=== PATIENT | female | born 1975 | race Caucasian/White ===

== ENCOUNTER 2017-12-29 03:17 | Emergency (ER) | payer MEDICAID ==
[~2017-12-29] VITALS: Ht 177.8 cm; Wt 124.0 kg
[~2017-12-29 03:17] MED LIST: CYCL-1 PO; CYCL-394 PO; LEVO175T38 PO; NAPR-56 PO; ONDA8TAB13 PO; SERT25TA PO; [UNRECOGNIZED DRUG - CODE] PO
[2017-12-29 03:26] VITALS: BP 122/74
[2017-12-29] MEDS ORDERED: IBUP-1984 PO (03:46)
[2017-12-29] MEDS ORDERED: HYDR-569 PO (03:46)
== END 2017-12-29 04:08 | disposition home or self-care (01) ==
LOC: ER 03:18
DX: K12.1 Other forms of stomatitis (principal); E03.9 Hypothyroidism, unspecified; I10 Essential (primary) hypertension; F15.10 Other stimulant abuse, uncomplicated; Z88.0 Allergy status to penicillin; Z88.5 Allergy status to narcotic agent; Z79.899 Other long term (current) drug therapy
CPT/HCPCS: 99283

== ENCOUNTER 2019-02-02 12:11 | Outpatient (CLI) | payer MEDICAID ==
[~2019-02-02 12:11] MED LIST changes: +HYDR-4383 PO
== END 2019-02-02 23:59 | disposition home or self-care (01) ==
LOC: RAD 12:11
PROVIDERS: ATTEND Family Medicine
DX: G40.909 Epilepsy, unspecified, not intractable, without status epilepticus (principal); Z87.828 Personal history of other (healed) physical injury and trauma
CPT/HCPCS: 95816

== ENCOUNTER 2019-02-27 11:05 | Emergency (ER) | payer MEDICAID ==
[~2019-02-27] VITALS: Ht 177.8 cm; Wt 109.0 kg
[2019-02-27 11:44] LABS: BASOPHILS % (AUTO) 0.4 % (0-1); EOSINOPHILS # (AUTO) 0.3 X10'3 (0-0.9); EOSINOPHILS % (AUTO) 3.8 % (0-6); HEMATOCRIT 39.9 % (35.0-45.0); HEMOGLOBIN 13.4 g/dl (12.0-16.0); LYMPHOCYTES # (AUTO) 1.7 X10'3 (1.1-4.8); LYMPHOCYTES % (AUTO) 22.4 % (21-51); MEAN CORPUSCULAR HEMOGLOBIN 32.7 PG (27.0-31.0); MEAN CORPUSCULAR HGB CONC 33.5 g/dL (33.0-36.5); MEAN CORPUSCULAR VOLUME 97.4 FL (78-98); MONOCYTES # (AUTO) 0.4 X10'3 (0-0.9); MONOCYTES % (AUTO) 5.9 % (2-12); NEUTROPHILS # (AUTO) 5.1 X10'3 (1.8-7.7); NEUTROPHILS % (AUTO) 67.5 % (42-75); PLATELET COUNT 231 X10'3 (140-440); RED CELL DISTRIBUTION WIDTH 14.4 % (11.5-14.5); WHITE BLOOD COUNT 7.6 X10'3 (4.5-11.0)
[2019-02-27 11:50] LABS: PARTIAL THROMBOPLASTIN TIME 35 SECONDS (22-32)
[2019-02-27 11:52] LABS: ALANINE AMINOTRANSFERASE 25 U/L (12-78); ALBUMIN 3.7 G/DL (3.4-5.0); ALBUMIN/GLOBULIN RATIO 0.8 (1.1-1.5); ALKALINE PHOSPHATASE 97 IU/L (46-116); ANION GAP 8 (8-16); ASPARTATE AMINO TRANSFERASE 17 U/L (10-37); BILIRUBIN,TOTAL 0.4 MG/DL (0.1-1.0); BLOOD UREA NITROGEN 15 MG/DL (7-18); CALCIUM 8.7 MG/DL (8.5-10.1); CHLORIDE 104 MMOL/L (99-107); CREATININE 1.25 MG/DL (0.40-0.90); GLUCOSE 88 MG/DL (70-104); POTASSIUM 3.5 MMOL/L (3.5-5.1); SODIUM 141 MMOL/L (135-145); TOTAL CARBON DIOXIDE 29.4 MMOL/L (24-32); TOTAL PROTEIN 8.1 G/DL (6.4-8.2); eGFR 47 ML/MIN
[2019-02-27 12:53] LABS: CLARITY,URINE CLEAR (Clear); COLOR,URINE YELLOW (Yellow); GLUCOSE, URINE NEGATIVE (Neg); KETONES,URINE NEGATIVE (Neg); LEUKOCYTE ESTERASE ,URINE NEGATIVE (Neg); NITRITES, URINE NEGATIVE (Neg); OCCULT BLOOD,URINE TRACE-INTACT (Neg); PROTEIN,URINE NEGATIVE (Neg); UROBILINOGEN,URINE 0.2 E.U/dL (0.2-1.0)
[2019-02-27 13:08] LABS: SQUAMOUS EPITHELIAL CELL,UR MANY /LPF (FEW); UA COLLECTION TYPE NON-SPECIFIED
[2019-02-27 13:09] LABS: BACTERIA,URINE FEW /HPF (Neg); MUCUS STRANDS MODERATE /LPF (Neg); RBC,URINE 0-2 /HPF (0-2); WBC,URINE 0-4 /HPF (0-4)
[2019-02-27 13:25] VITALS: BP 115/79
== END 2019-02-27 13:35 | disposition home or self-care (01) ==
LOC: ER 11:06
DX: R56.9 Unspecified convulsions (principal); I10 Essential (primary) hypertension; E03.9 Hypothyroidism, unspecified; F15.90 Other stimulant use, unspecified, uncomplicated; Z98.890 Other specified postprocedural states; Z88.0 Allergy status to penicillin; Z88.5 Allergy status to narcotic agent; Z79.899 Other long term (current) drug therapy
CPT/HCPCS: 36415; 71045; 80053; 81001; 84484; 85025; 85610; 85730; 93005; 99284

== ENCOUNTER 2020-05-18 11:34 | Day surgery (SDC) | payer MEDICAID ==
[2020-05-12 15:14] LABS: BASOPHILS % (AUTO) 0.3 % (0-1); EOSINOPHILS # (AUTO) 0.6 X10'3 (0-0.9); LYMPHOCYTES # (AUTO) 2.6 X10'3 (1.1-4.8); LYMPHOCYTES % (AUTO) 23.2 % (21-51); MEAN CORPUSCULAR HEMOGLOBIN 32.3 PG (27.0-31.0); MEAN CORPUSCULAR HGB CONC 33.3 g/dL (33.0-36.5); MEAN PLATELET VOLUME 8.3 FL (7.4-10.4); MONOCYTES # (AUTO) 0.7 X10'3 (0-0.9); MONOCYTES % (AUTO) 6.2 % (2-12); NEUTROPHILS # (AUTO) 7.2 X10'3 (1.8-7.7); NEUTROPHILS % (AUTO) 65.3 % (42-75); PRE OP HEMATOCRIT 39.4 % (35.0-45.0); PRE OP HEMOGLOBIN 13.1 g/dL (12.0-16.0); PRE OP PLATELET COUNT 232 X10'3 (140-440); RED BLOOD COUNT 4.06 X10'6 (4.20-5.60); RED CELL DISTRIBUTION WIDTH 14.2 % (11.5-14.5)
[2020-05-12 15:30] LABS: ALBUMIN 4.2 G/DL (3.4-5.0); ALBUMIN/GLOBULIN RATIO 0.9 (1.1-1.5); ALKALINE PHOSPHATASE 100 IU/L (46-116); BLOOD UREA NITROGEN 15 MG/DL (7-18); BUN/CREATININE RATIO 8.9 (6.6-38.0); CALCIUM 9.5 MG/DL (8.5-10.1); CHLORIDE 103 MMOL/L (99-107); CREATININE 1.68 MG/DL (0.40-0.90); PRE OP ALT 29 U/L (30-65); PRE OP ANION GAP 9 (8-16); PRE OP AST 24 U/L (10-37); PRE OP BILIRUB, TOTAL 0.3 MG/DL (0.0-1.0); PRE OP GLUCOSE 84 MG/DL (70-104); PRE OP POTASSIUM 4.1 MMOL/L (3.4-5.1); PRE OP SODIUM 140 MMOL/L (135-145); TOTAL CARBON DIOXIDE 28.5 MMOL/L (24-32); TOTAL PROTEIN 8.7 G/DL (6.4-8.2); eGFR 33 ML/MIN
[2020-05-12 15:43] LABS: HCG SERUM QL NEGATIVE
[~2020-05-18] VITALS: Ht 180.3 cm; Wt 144.0 kg
[2020-05-18] VITALS (14 sets, daily range): BP systolic 103–130; BP diastolic 66–84
[~2020-05-18 11:34] MED LIST changes: +ALBU8.5H8 IH; -CYCL-1 PO; +DIVA500T9 PO; +FURO40TA4 PO; +GABA800T11 PO; -NAPR-56 PO; -ONDA8TAB13 PO; +POTA10TA19 PO; -SERT25TA PO; +TOPI25TA49 PO; -[UNRECOGNIZED DRUG - CODE] PO; +acetaminophen 325mg tablet PO ONE; +albuterol 2.5 MG/3 ML nebule NEB ONE; +ascorbic acid 500mg tablet PO ONE; +ceFAZolin 2gm in dextrose, iso 50 ML IV ONE; +celeCOXIB 100mg capsule PO ONE; +famotidine 20mg tablet PO ONE; +gabapentin 300mg capsule PO ONE; +ringers solution, lacted 1,000 ML IV SCH; +vancomycin 1,500 MG in NS 300ml IV soln IV ONE
[2020-05-18] MEDS ORDERED: methylPREDNISolone sod succ 125mg/2ml vial ONE (12:36)
[2020-05-18] MEDS ORDERED: BUPIVAcaine/PF 2.5 mg/ml (0.25%) 30ml vial ONE (12:37)
[2020-05-18] MEDS ORDERED: levoFLOXACIN-Levaquin 500mg/D5 100 ML IV ONE (12:40)
[2020-05-18] MEDS ORDERED: ringers solution, lacted 1,000 ML IV SCH (12:41)
[2020-05-18] MEDS ORDERED: LIDOcaine 0.5% (5mg/ml) 50ml vial ONE (12:44)
[2020-05-18] MEDS ORDERED: morphine 4 MG/ML inj SYRINge IV PRN (12:45)
[2020-05-18] MEDS ORDERED: hydrALAZINE 20mg/ml inj. IV PRN (12:45)
[2020-05-18] MEDS ORDERED: ondansetron/PF 4mg/2ml inj IV PRN (12:45)
[2020-05-18] MEDS ORDERED: fentaNYL/PF 50MCG/1 ML 2ML syringe IV PRN ×2 (12:45)
[2020-05-18] MEDS ORDERED: labetalol 20mg/4ml (5mg/ml) syringe IV PRN (12:45)
[2020-05-18] MEDS ORDERED: morphine 2 MG/ML inj. syringe IV PRN (12:45)
[2020-05-18] MEDS ORDERED: fentaNYL/PF 50MCG/1 ML 2ML syringe ONE (12:47)
[2020-05-18] MEDS ORDERED: MIDAZolam 1mg/ml 10ml vial ONE (12:47)
--- NOTE | 2020-05-18 13:20 | NUR ---
Received from OR via [facility] , accompanied by Anesthesiologist DAMIR and report given by Anesthesiolgist. PATIENT WITH 20G PIV IN LEFT UE RUNNING LR AT 100. RIGHT WRIST DRESSING IS CDI. VSS. + CAP REFILL AND BLANCHABILITY. Addendum: 05/18/20 at 1427 by Rahul Ferguson RN, RN Amended: Links added.
--- NOTE | 2020-05-18 15:58 | NUR ---
I HAVE REVIEWED D/C INSTRUCTIONS WITH PATIENT AND FAMILY AND THEY HAVE VERBALIZED UNDERSTANDING. PATIENT D/C HOME WITH ALL BELONGINGS AND FAMILY GAVE TRANSPORT HOME. RIGHT WRIST DRESSING IS CDI. + CAP REFILL. VSS. DRESSED WITH ASSIST OF RN STUDENTS X2 (FEMALE PRESENT). Addendum: 05/18/20 at 1606 by Rahul Ferguson RN, RN Amended: Links added.
== END 2020-05-18 15:58 | disposition home or self-care (01) ==
LOC: PAS 11:34
PROVIDERS: ATTEND Orthopaedic Surgery
DX: G56.01 Carpal tunnel syndrome, right upper limb (principal); G56.21 Lesion of ulnar nerve, right upper limb; J45.909 Unspecified asthma, uncomplicated; E03.9 Hypothyroidism, unspecified; F41.9 Anxiety disorder, unspecified; G89.29 Other chronic pain; F31.9 Bipolar disorder, unspecified; I25.10 Atherosclerotic heart disease of native coronary artery without angina pectoris; I12.9 Hypertensive chronic kidney disease with stage 1 through stage 4 chronic kidney disease, or unspecified chronic kidney disease; N18.4 Chronic kidney disease, stage 4 (severe); E66.01 Morbid (severe) obesity due to excess calories; Z68.42 Body mass index [BMI] 45.0-49.9, adult; F42.9 Obsessive-compulsive disorder, unspecified; F43.10 Post-traumatic stress disorder, unspecified; Z98.890 Other specified postprocedural states; Z88.0 Allergy status to penicillin; Z88.5 Allergy status to narcotic agent; Z79.899 Other long term (current) drug therapy; Z20.828 Contact with and (suspected) exposure to other viral communicable diseases
CPT/HCPCS: 36415; 64719; 64721; 80053; 82948; 84703; 85025; 93005; A6222; J2001; J2250; J2930; J3010; J3370; J3490; J7040; U0003; A4215; A4618; A6449; A7000; J7120

== ENCOUNTER 2020-09-14 05:43 | Day surgery (SDC) | payer MEDICAID ==
[2020-09-06 14:54] LABS: BASOPHILS % (AUTO) 0.4 % (0-1); EOSINOPHILS # (AUTO) 0.6 X10'3 (0-0.9); EOSINOPHILS % (AUTO) 5.2 % (0-6); LYMPHOCYTES # (AUTO) 2.6 X10'3 (1.1-4.8); LYMPHOCYTES % (AUTO) 23.4 % (21-51); MEAN CORPUSCULAR HEMOGLOBIN 33.4 PG (27.0-31.0); MEAN CORPUSCULAR HGB CONC 33.2 g/dL (33.0-36.5); MEAN CORPUSCULAR VOLUME 100.5 FL (78-98); MEAN PLATELET VOLUME 8.6 FL (7.4-10.4); MONOCYTES # (AUTO) 0.6 X10'3 (0-0.9); MONOCYTES % (AUTO) 5.2 % (2-12); NEUTROPHILS # (AUTO) 7.4 X10'3 (1.8-7.7); NEUTROPHILS % (AUTO) 65.8 % (42-75); PRE OP HEMATOCRIT 38.7 % (35.0-45.0); PRE OP HEMOGLOBIN 12.9 g/dL (12.0-16.0); PRE OP PLATELET COUNT 229 X10'3 (140-440); RED BLOOD COUNT 3.85 X10'6 (4.20-5.60); RED CELL DISTRIBUTION WIDTH 15.2 % (11.5-14.5)
[2020-09-06 15:15] LABS: ALBUMIN 4.5 G/DL (3.4-5.0); ALKALINE PHOSPHATASE 103 IU/L (46-116); BLOOD UREA NITROGEN 22 MG/DL (7-18); BUN/CREATININE RATIO 12.9 (6.6-38.0); CALCIUM 9.3 MG/DL (8.5-10.1); CHLORIDE 102 MMOL/L (99-107); PRE OP ALT 46 U/L (30-65); PRE OP ANION GAP 11 (8-16); PRE OP AST 78 U/L (10-37); PRE OP BILIRUB, TOTAL 0.3 MG/DL (0.0-1.0); PRE OP GLUCOSE 90 MG/DL (70-104); PRE OP SODIUM 139 MMOL/L (135-145); TOTAL CARBON DIOXIDE 26.3 MMOL/L (24-32); TOTAL PROTEIN 9.2 G/DL (6.4-8.2); eGFR 33 ML/MIN
[2020-09-14] VITALS (10 sets, daily range): BP systolic 108–135; BP diastolic 68–96
[~2020-09-14] VITALS: Ht 180.3 cm; Wt 152.0 kg
[~2020-09-14 05:43] MED LIST changes: -CYCL-394 PO; -DIVA500T9 PO; -GABA800T11 PO; -HYDR-4383 PO; -TOPI25TA49 PO; -acetaminophen 325mg tablet PO ONE; -albuterol 2.5 MG/3 ML nebule NEB ONE; -ascorbic acid 500mg tablet PO ONE; -ceFAZolin 2gm in dextrose, iso 50 ML IV ONE; +ceFAZolin inj. 3,000 MG in normal saline 100ml IV soln 100 ML IV ONE; -celeCOXIB 100mg capsule PO ONE; -gabapentin 300mg capsule PO ONE
[2020-09-14] MEDS ORDERED: methylPREDNISolone sod succ 125mg/2ml vial ONE (06:22)
[2020-09-14] MEDS ORDERED: BUPIVAcaine/PF 2.5 mg/ml (0.25%) 30ml vial ONE (06:22)
[2020-09-14] MEDS ORDERED: sevoflurane 250ml liquid IH ONE (07:45)
[2020-09-14] MEDS ORDERED: LIDOcaine 0.5% (5mg/ml) 50ml vial ONE (07:49)
[2020-09-14] MEDS ORDERED: fentaNYL/PF 50MCG/1 ML 2ML syringe ONE ×3 (07:50→09:55)
[2020-09-14] MEDS ORDERED: MIDAZolam 5mg/5ml vial ONE (07:52)
--- NOTE | 2020-09-14 08:56 | NUR ---
Received from OR via , accompanied by Anesthesiologist DR ASHER and report given by Anesthesiolgist. AWAKENS TO VOICE. VITALS STABLE. DRESSING/SPLINT DI. NORMA PAIN. FINGERS WARM AND PINK.
[2020-09-14] MEDS ORDERED: meperidine/PF 25mg/ml syringe IV PRN ×3 (09:00)
[2020-09-14] MEDS ORDERED: proCHLORperazine 10 MG/2 ml inj IV PRN (09:00)
[2020-09-14] MEDS ORDERED: morphine 4 MG/ML inj SYRINge IV PRN (09:00)
[2020-09-14] MEDS ORDERED: ondansetron/PF 4mg/2ml inj IV PRN (09:00)
[2020-09-14] MEDS ORDERED: ringers solution, lacted 1,000 ML IV SCH (09:00)
[2020-09-14] MEDS ORDERED: morphine 2 MG/ML inj. syringe IV PRN (09:00)
[2020-09-14] MEDS ORDERED: LIDOcaine 2% (20mg/ml) 5ml vial ONE (09:16)
[2020-09-14] MEDS ORDERED: dexamethasone sod phosphate 4mg/ml inj. ONE (09:16)
[2020-09-14] MEDS ORDERED: propofol inj 20 ML IV ONE (09:16)
[2020-09-14] MEDS ORDERED: ondansetron/PF 4mg/2ml inj ONE (09:16)
--- NOTE | 2020-09-14 10:46 | NUR ---
AWAKE AND ORIENTED. VITALS STABLE. DRESSING DI. NORMA PAIN. LUE IN SIMPLE SLING. HOME WITH FRIENDS AT THIS TIME.
== END 2020-09-14 10:46 | disposition home or self-care (01) ==
LOC: PAS 05:43
PROVIDERS: ATTEND Orthopaedic Surgery
DX: G56.02 Carpal tunnel syndrome, left upper limb (principal); G56.22 Lesion of ulnar nerve, left upper limb; J45.909 Unspecified asthma, uncomplicated; F41.9 Anxiety disorder, unspecified; E03.9 Hypothyroidism, unspecified; G89.29 Other chronic pain; I12.9 Hypertensive chronic kidney disease with stage 1 through stage 4 chronic kidney disease, or unspecified chronic kidney disease; N18.4 Chronic kidney disease, stage 4 (severe); F31.9 Bipolar disorder, unspecified; I25.10 Atherosclerotic heart disease of native coronary artery without angina pectoris; F42.9 Obsessive-compulsive disorder, unspecified; E66.01 Morbid (severe) obesity due to excess calories; Z68.42 Body mass index [BMI] 45.0-49.9, adult; Z88.0 Allergy status to penicillin; Z88.5 Allergy status to narcotic agent; Z20.828 Contact with and (suspected) exposure to other viral communicable diseases; Z79.899 Other long term (current) drug therapy; Z98.890 Other specified postprocedural states
CPT/HCPCS: 36415; 64719; 64721; 76937; 80053; 82948; 85025; 87635; A6222; J0690; J1100; J2001; J2250; J2405; J2704; J2930; J3010; J3370; J3490; J7040; A4215; A4565; A4618; A6449; A7000; J7120

== ENCOUNTER 2020-11-10 03:15 | Emergency (ER) | payer MEDICAID ==
[~2020-11-10] VITALS: Ht 177.8 cm; Wt 159.0 kg
[~2020-11-10 03:15] MED LIST changes: -ceFAZolin inj. 3,000 MG in normal saline 100ml IV soln 100 ML IV ONE; -famotidine 20mg tablet PO ONE; -ringers solution, lacted 1,000 ML IV SCH; -vancomycin 1,500 MG in NS 300ml IV soln IV ONE
[2020-11-10] MEDS ORDERED: furosemide 10 MG/1 ML 10ml inj IV ONE (04:10)
--- NOTE | 2020-11-10 05:11 | NUR ---
unsucessful IV start attempts via ultrasound patient refuses EJ.
[2020-11-10] MEDS ORDERED: furosemide 20MG tablet PO ONE (05:15)
--- NOTE | 2020-11-10 05:17 | NUR ---
Dr Mak notified of inability to start IV via ultrasound x 5 two separate nurses. patient refused EJ, central line. dr Mak dc'd IV lasix and labs until PICC line placed.
[2020-11-10] MEDS ORDERED: potassium Cl 20 mEq SR tablet PO PRN ×2 (05:40)
[2020-11-10] MEDS ORDERED: magnesium 2GM in 50ml NS 50 ML IV PRN (05:40)
[2020-11-10] MEDS ORDERED: acetaminophen 325mg tablet PO PRN (05:40)
[2020-11-10] MEDS ORDERED: magnesium Cl slow-release 64mg tablet PO PRN (05:40)
[2020-11-10] MEDS ORDERED: ondansetron/PF 4mg/2ml inj IV PRN (05:40)
[2020-11-10] MEDS ORDERED: mag hydrox/Alum hydrox/simeth 30ml oral suspension PO PRN (05:40)
[2020-11-10] MEDS ORDERED: magnesium hydroxide 30ml (MOM) UD suspension PO PRN (05:40)
[2020-11-10] MEDS ORDERED: HYDROcodone/acetaminophen 5mg/325mg tablet PO PRN (05:40)
[2020-11-10] MEDS ORDERED: potassium Cl 40MEQ/1/2NS 520ml 520 ML IV PRN ×2 (05:40)
[2020-11-10] MEDS ORDERED: magnesium 4gm in 100ml NS 100 ML IV PRN (05:40)
[2020-11-10] MEDS ORDERED: LORazepam 1 MG tablet PO ONE (05:55)
--- NOTE | 2020-11-10 05:55 | NUR ---
Dr Dalton aware that IV med orders are to start after PICC line insertion
--- NOTE | 2020-11-10 05:58 | NUR ---
Patient reports feelings of anxiety and crying. Ativan order received
--- NOTE | 2020-11-10 06:03 | NUR ---
resides at [facility] [address]
--- NOTE | 2020-11-10 07:34 | NUR ---
Dr. Stalney paged. No IV access. IVP Lasix dose ordered.
[2020-11-10] MEDS: levoTHYROXINE 175mcg tablet PO SCH (07:49)
--- NOTE | 2020-11-10 07:51 | NUR ---
Pt ambulated to bathroom
[2020-11-10] MEDS: K and/or MAG REPLACEMENT MC SCH ×2 (08:00→20:00)
[2020-11-10] MEDS: furosemide 40mg/4ml inj IV SCH ×2 (09:01→21:14)
[2020-11-10 09:14] LABS: BASOPHILS # (AUTO) 0.1 X10'3 (0-0.2); BASOPHILS % (AUTO) 0.7 % (0-1); EOSINOPHILS # (AUTO) 0.3 X10'3 (0-0.9); HEMATOCRIT 34.2 % (35.0-45.0); HEMOGLOBIN 11.5 g/dl (12.0-16.0); LYMPHOCYTES # (AUTO) 1.7 X10'3 (1.1-4.8); LYMPHOCYTES % (AUTO) 18.9 % (21-51); MEAN CORPUSCULAR HEMOGLOBIN 33.4 PG (27.0-31.0); MEAN CORPUSCULAR HGB CONC 33.6 g/dL (33.0-36.5); MEAN CORPUSCULAR VOLUME 99.4 FL (78-98); MEAN PLATELET VOLUME 9.3 FL (7.4-10.4); MONOCYTES # (AUTO) 0.7 X10'3 (0-0.9); MONOCYTES % (AUTO) 8.4 % (2-12); PLATELET COUNT 176 X10'3 (140-440); RED BLOOD COUNT 3.44 X10'6 (4.20-5.60); WHITE BLOOD COUNT 8.7 X10'3 (4.5-11.0)
[2020-11-10 09:39] LABS: ALANINE AMINOTRANSFERASE 33 U/L (12-78); ALBUMIN 3.8 G/DL (3.4-5.0); ALBUMIN/GLOBULIN RATIO 0.9 (1.1-1.5); ALKALINE PHOSPHATASE 98 IU/L (46-116); ANION GAP 10 (8-16); ASPARTATE AMINO TRANSFERASE 24 U/L (10-37); BILIRUBIN,TOTAL 0.4 MG/DL (0.1-1.0); BLOOD UREA NITROGEN 18 MG/DL (7-18); BUN/CREATININE RATIO 13.7 (6.6-38.0); CALCIUM 8.5 MG/DL (8.5-10.1); CHLORIDE 103 MMOL/L (99-107); CREATININE 1.31 MG/DL (0.40-0.90); GLUCOSE 102 MG/DL (70-104); POTASSIUM 3.7 MMOL/L (3.5-5.1); SODIUM 142 MMOL/L (135-145); TOTAL CARBON DIOXIDE 28.7 MMOL/L (24-32); eGFR 44 ML/MIN
--- NOTE | 2020-11-10 10:18 | NUR ---
pt ambulated to bathroom
--- NOTE | 2020-11-10 11:00 | NUR ---
patient ambulated to bathroom
[2020-11-10 13:12] LABS: BASOPHILS % (AUTO) 0.5 % (0-1); EOSINOPHILS # (AUTO) 0.3 X10'3 (0-0.9); EOSINOPHILS % (AUTO) 3.9 % (0-6); HEMATOCRIT 37.8 % (35.0-45.0); HEMOGLOBIN 12.6 g/dl (12.0-16.0); LYMPHOCYTES # (AUTO) 1.3 X10'3 (1.1-4.8); LYMPHOCYTES % (AUTO) 15.4 % (21-51); MEAN CORPUSCULAR HEMOGLOBIN 33.5 PG (27.0-31.0); MEAN CORPUSCULAR HGB CONC 33.4 g/dL (33.0-36.5); MEAN CORPUSCULAR VOLUME 100.1 FL (78-98); MEAN PLATELET VOLUME 8.9 FL (7.4-10.4); MONOCYTES # (AUTO) 0.4 X10'3 (0-0.9); MONOCYTES % (AUTO) 5.2 % (2-12); NEUTROPHILS # (AUTO) 6.4 X10'3 (1.8-7.7); PLATELET COUNT 225 X10'3 (140-440); RED BLOOD COUNT 3.78 X10'6 (4.20-5.60); RED CELL DISTRIBUTION WIDTH 14.3 % (11.5-14.5); WHITE BLOOD COUNT 8.6 X10'3 (4.5-11.0)
[2020-11-10 13:27] LABS: ALANINE AMINOTRANSFERASE 37 U/L (12-78); ALBUMIN 4.3 G/DL (3.4-5.0); ALBUMIN/GLOBULIN RATIO 0.9 (1.1-1.5); ALKALINE PHOSPHATASE 109 IU/L (46-116); ANION GAP 12 (8-16); ASPARTATE AMINO TRANSFERASE 31 U/L (10-37); BILIRUBIN,TOTAL 0.6 MG/DL (0.1-1.0); BLOOD UREA NITROGEN 19 MG/DL (7-18); BUN/CREATININE RATIO 13.1 (6.6-38.0); CALCIUM 8.9 MG/DL (8.5-10.1); CHLORIDE 99 MMOL/L (99-107); CREATININE 1.45 MG/DL (0.40-0.90); GLUCOSE 104 MG/DL (70-104); POTASSIUM 3.7 MMOL/L (3.5-5.1); SODIUM 142 MMOL/L (135-145); TOTAL CARBON DIOXIDE 31.4 MMOL/L (24-32); eGFR 39 ML/MIN
--- NOTE | 2020-11-10 15:27 | NUR ---
DR HENDERSON called to get update on patient. Would like echo completed mya, spray technician paged.
--- NOTE | 2020-11-10 20:34 | NUR ---
pt placed on 2 L O2 for O2 88% while sleeping. After O2 administration O2 AT 93%.
--- NOTE | 2020-11-10 21:52 | NUR ---
PT SITTING TO DANGLE AT EDGE OF BED AND EATING HER DINNER TRAY. PT IS PLEASANT AND COOPERATIVE. VSS.
--- NOTE | 2020-11-10 22:10 | NUR ---
PT STATES SHE FEELS HER FACE IS STILL VERY SWOLLEN AND HER FEET ARE UNCOMFORTABLE TO WALK ON R/T BL EDEMA. SHE IS SITTING ON THE EDGE OF BED EATING DINNER TRAY. PT WALKED INDEPENDENTLY TO THE BATHROOM.
[2020-11-10] MEDS ORDERED: methylPREDNISolone sod succ 125mg/2ml vial IV ONE (22:15)
[2020-11-10] MEDS ORDERED: diphenhydrAMINE 50 mg/ml inj IV ONE (22:15)
--- NOTE | 2020-11-11 07:11 | NUR ---
Patient is asleep in bed
[2020-11-11 07:31] LABS: BASOPHILS % (AUTO) 0.3 % (0-1); EOSINOPHILS % (AUTO) 0.2 % (0-6); HEMATOCRIT 36.2 % (35.0-45.0); HEMOGLOBIN 12.2 g/dl (12.0-16.0); LYMPHOCYTES % (AUTO) 9.7 % (21-51); MEAN CORPUSCULAR HEMOGLOBIN 33.2 PG (27.0-31.0); MEAN CORPUSCULAR HGB CONC 33.8 g/dL (33.0-36.5); MEAN CORPUSCULAR VOLUME 98.2 FL (78-98); MEAN PLATELET VOLUME 8.5 FL (7.4-10.4); MONOCYTES # (AUTO) 0.1 X10'3 (0-0.9); MONOCYTES % (AUTO) 1.3 % (2-12); NEUTROPHILS # (AUTO) 9.4 X10'3 (1.8-7.7); NEUTROPHILS % (AUTO) 88.5 % (42-75); PLATELET COUNT 228 X10'3 (140-440); RED BLOOD COUNT 3.68 X10'6 (4.20-5.60); RED CELL DISTRIBUTION WIDTH 14.1 % (11.5-14.5); WHITE BLOOD COUNT 10.6 X10'3 (4.5-11.0)
[2020-11-11 07:47] LABS: ALANINE AMINOTRANSFERASE 32 U/L (12-78); ALBUMIN 3.7 G/DL (3.4-5.0); ALBUMIN/GLOBULIN RATIO 0.8 (1.1-1.5); ALKALINE PHOSPHATASE 103 IU/L (46-116); ANION GAP 11 (8-16); ASPARTATE AMINO TRANSFERASE 21 U/L (10-37); BILIRUBIN,TOTAL 0.4 MG/DL (0.1-1.0); BLOOD UREA NITROGEN 21 MG/DL (7-18); BUN/CREATININE RATIO 14.7 (6.6-38.0); CALCIUM 8.7 MG/DL (8.5-10.1); CHLORIDE 100 MMOL/L (99-107); CREATININE 1.43 MG/DL (0.40-0.90); GLUCOSE 162 MG/DL (70-104); MAGNESIUM 2.3 MG/DL (1.5-2.4); POTASSIUM 3.6 MMOL/L (3.5-5.1); SODIUM 140 MMOL/L (135-145); TOTAL CARBON DIOXIDE 28.7 MMOL/L (24-32); TOTAL PROTEIN 8.3 G/DL (6.4-8.2); eGFR 40 ML/MIN
--- NOTE | 2020-11-11 07:50 | NUR ---
Lasix order clarified with Dr. Stanley. Orders to give lasix as scheduled.
[2020-11-11] MEDS: K and/or MAG REPLACEMENT MC SCH (08:15)
[2020-11-11] MEDS: furosemide 40mg/4ml inj IV SCH (08:16)
[2020-11-11] MEDS: levoTHYROXINE 175mcg tablet PO SCH (08:16)
[2020-11-11] MEDS ORDERED: DOXY-243 PO (08:31)
[2020-11-11 10:15] VITALS: BP 134/80
== END 2020-11-11 15:15 | disposition home or self-care (01) ==
LOC: ER 03:16 → ED HOLD 05:39 → UNDOADMIN 05:39 → ER 11-11 15:15 → UNDODISIN 11-11 15:15
DX: R60.0 Localized edema (principal); I50.9 Heart failure, unspecified; F15.20 Other stimulant dependence, uncomplicated; I11.0 Hypertensive heart disease with heart failure; E78.00 Pure hypercholesterolemia, unspecified; Z98.891 History of uterine scar from previous surgery; Z98.890 Other specified postprocedural states; Z86.61 Personal history of infections of the central nervous system; Z68.43 Body mass index [BMI] 50.0-59.9, adult
CPT/HCPCS: 36415; 71045; 80053; 83605; 83735; 83880; 84145; 84443; 84484; 85025; 87040; 93005; 93306; 93308; 96374; 96375; 96376; 99285; J1200; J1940; J2930; G0378

== ENCOUNTER 2021-03-18 12:16 | Emergency (ER) | payer MEDICAID ==
[~2021-03-18] VITALS: Ht 167.6 cm; Wt 136.4 kg
[2021-03-18 12:33] VITALS: BP 129/98
--- NOTE | 2021-03-18 15:20 | NUR ---
PATIENT MOVED INSIDE TO ROOM 17, DUE TO PATIENT INTOLERANCE TO WARM WEATHER OUTSIDE ON THE AMBULANCE BAY. AWAITING COVID SWAB RESULTS.
[2021-03-18] MEDS ORDERED: BENZ-16 PO (15:39)
== END 2021-03-18 15:48 | disposition home or self-care (01) ==
LOC: ER 12:17
DX: J22 Unspecified acute lower respiratory infection (principal); Z20.822 Contact with and (suspected) exposure to COVID-19; B97.89 Other viral agents as the cause of diseases classified elsewhere; J45.909 Unspecified asthma, uncomplicated; G40.909 Epilepsy, unspecified, not intractable, without status epilepticus; F15.90 Other stimulant use, unspecified, uncomplicated; I10 Essential (primary) hypertension; E03.9 Hypothyroidism, unspecified; Z98.891 History of uterine scar from previous surgery; Z88.0 Allergy status to penicillin; Z79.899 Other long term (current) drug therapy
CPT/HCPCS: 71045; 87635; 99284; C9803

== ENCOUNTER 2021-06-19 00:42 | Emergency (ER) | payer MEDICAID ==
[~2021-06-19] VITALS: Ht 177.8 cm; Wt 160.0 kg
[~2021-06-19 00:42] MED LIST changes: +ALBU8.5H17 IH; -ALBU8.5H8 IH
[2021-06-19 01:05] VITALS: BP 147/98
== END 2021-06-19 03:02 | disposition left against medical advice (07) ==
LOC: ER 00:43
DX: R06.02 Shortness of breath (principal); Z53.21 Procedure and treatment not carried out due to patient leaving prior to being seen by health care provider
CPT/HCPCS: 93005

== ENCOUNTER 2022-09-07 10:29 | Emergency (ER) | payer MEDICAID ==
[~2022-09-07] VITALS: Ht 177.8 cm; Wt 140.9 kg
[~2022-09-07 10:29] MED LIST changes: +POTA-192 PO; -POTA10TA19 PO
[2022-09-07 11:02] VITALS: BP 130/84
== END 2022-09-07 14:51 | disposition home or self-care (01) ==
LOC: ER 10:30
DX: H92.01 Otalgia, right ear (principal); I10 Essential (primary) hypertension; E03.9 Hypothyroidism, unspecified; F41.9 Anxiety disorder, unspecified; F32.A Depression, unspecified; F15.90 Other stimulant use, unspecified, uncomplicated; Z86.69 Personal history of other diseases of the nervous system and sense organs; Z98.890 Other specified postprocedural states; Z88.0 Allergy status to penicillin; Z88.5 Allergy status to narcotic agent; Z79.899 Other long term (current) drug therapy
CPT/HCPCS: 99282

== ENCOUNTER 2022-11-19 11:59 | Emergency (ER) | payer MEDICAID ==
[~2022-11-19] VITALS: Ht 177.8 cm; Wt 145.4 kg
[2022-11-19 12:24] LABS: BASOPHILS # (AUTO) 0.2 X10'3 (0-0.2); BASOPHILS % (AUTO) 1.8 % (0-1); EOSINOPHILS # (AUTO) 0.6 X10'3 (0-0.9); EOSINOPHILS % (AUTO) 5.6 % (0-6); HEMATOCRIT 39.2 % (35.0-45.0); HEMOGLOBIN 12.8 g/dl (12.0-16.0); LYMPHOCYTES # (AUTO) 1.3 X10'3 (1.1-4.8); LYMPHOCYTES % (AUTO) 12.2 % (21-51); MEAN CORPUSCULAR HEMOGLOBIN 32.1 PG (27.0-31.0); MEAN CORPUSCULAR HGB CONC 32.5 g/dL (33.0-36.5); MEAN CORPUSCULAR VOLUME 98.8 FL (78-98); MEAN PLATELET VOLUME 8.1 FL (7.4-10.4); MONOCYTES # (AUTO) 0.6 X10'3 (0-0.9); MONOCYTES % (AUTO) 5.9 % (2-12); NEUTROPHILS # (AUTO) 8.1 X10'3 (1.8-7.7); NEUTROPHILS % (AUTO) 74.5 % (42-75); PLATELET COUNT 274 X10'3 (140-440); RED BLOOD COUNT 3.97 X10'6 (4.20-5.60); RED CELL DISTRIBUTION WIDTH 16.4 % (11.5-14.5); WHITE BLOOD COUNT 10.9 X10'3 (4.5-11.0)
[2022-11-19 12:39] VITALS: BP 146/82
[2022-11-19 12:39] LABS: ALANINE AMINOTRANSFERASE 23 U/L (12-78); ALBUMIN/GLOBULIN RATIO 0.8 (1.1-1.5); ALKALINE PHOSPHATASE 122 IU/L (46-116); ANION GAP 7 (8-16); ASPARTATE AMINO TRANSFERASE 22 U/L (10-37); BILIRUBIN,TOTAL 0.4 MG/DL (0.1-1.0); BLOOD UREA NITROGEN 13 MG/DL (7-18); BUN/CREATININE RATIO 9.9 (6.6-38.0); CALCIUM 9.5 MG/DL (8.5-10.1); CHLORIDE 104 MMOL/L (99-107); CREATININE 1.31 MG/DL (0.40-0.90); GLUCOSE 85 MG/DL (70-104); POTASSIUM 3.6 MMOL/L (3.5-5.1); SODIUM 142 MMOL/L (135-145); TOTAL CARBON DIOXIDE 30.8 MMOL/L (24-32); TOTAL PROTEIN 9.1 G/DL (6.4-8.2); eGFR 44 ML/MIN
[2022-11-19 12:47] LABS: MAGNESIUM 2.2 MG/DL (1.5-2.4)
== END 2022-11-19 14:59 | disposition left against medical advice (07) ==
LOC: ER 12:00
DX: R05.9 Cough, unspecified (principal); Z53.21 Procedure and treatment not carried out due to patient leaving prior to being seen by health care provider
CPT/HCPCS: 36415; 80053; 83735; 83880; 84484; 85025; 93005

== ENCOUNTER 2023-08-11 03:40 | Emergency (ER) | payer MEDICAID ==
[~2023-08-11] VITALS: Ht 177.8 cm; Wt 172.7 kg
[2023-08-11] MEDS ORDERED: azithromycin/NS 500mg/250ml 250 ML IV ONE (04:00)
[2023-08-11] MEDS ORDERED: methylPREDNISolone sod succ 125mg/2ml vial IV ONE (04:00)
[2023-08-11] MEDS ORDERED: CefTRIAXone 2gm/D5W 50ml BAG 50 ML IV ONE (04:00)
[2023-08-11] MEDS ORDERED: ipratropium/albuterol 3ml nebule NEB ONE (04:00)
[2023-08-11 06:00] VITALS: PULSE 99; RESP 20; O2SAT 93
[2023-08-11 06:04] VITALS: PULSE 101; RESP 18; O2SAT 100
[2023-08-11 06:11] LABS: ALANINE AMINOTRANSFERASE 32 U/L (12-78); ALBUMIN 3.6 G/DL (3.4-5.0); ALBUMIN/GLOBULIN RATIO 0.8 (1.1-1.5); ALKALINE PHOSPHATASE 116 IU/L (46-116); ANION GAP 7 (8-16); ASPARTATE AMINO TRANSFERASE 25 U/L (10-37); BILIRUBIN,TOTAL 0.4 MG/DL (0.1-1.0); BLOOD UREA NITROGEN 16 MG/DL (7-18); BUN/CREATININE RATIO 13.1 (10.0-20.0); CALCIUM 9.1 MG/DL (8.5-10.1); CHLORIDE 102 MMOL/L (99-107); CREATININE 1.22 MG/DL (0.40-0.90); GLUCOSE 104 MG/DL (70-104); POTASSIUM 3.8 MMOL/L (3.5-5.1); SODIUM 136 MMOL/L (135-145); TOTAL PROTEIN 8.3 G/DL (6.4-8.2); eCRCL 61 ML/MIN; eGFR 47 ML/MIN
[2023-08-11 06:19] LABS: PRO BRAIN NATRIURETIC PEPTIDE 186 PG/ML (0-125)
[2023-08-11 06:35] LABS: BASOPHILS % (AUTO) 0.4 % (0-1); EOSINOPHILS # (AUTO) 0.3 X10'3 (0-0.9); EOSINOPHILS % (AUTO) 3.4 % (0-6); HEMOGLOBIN 10.3 g/dl (12.0-16.0); LYMPHOCYTES # (AUTO) 0.9 X10'3 (1.1-4.8); LYMPHOCYTES % (AUTO) 10.8 % (21-51); MEAN CORPUSCULAR HEMOGLOBIN 33.6 PG (27.0-31.0); MEAN CORPUSCULAR HGB CONC 33.2 g/dL (33.0-36.5); MEAN CORPUSCULAR VOLUME 101.1 FL (78-98); MEAN PLATELET VOLUME 9.1 FL (7.4-10.4); MONOCYTES # (AUTO) 0.7 X10'3 (0-0.9); MONOCYTES % (AUTO) 8.7 % (2-12); NEUTROPHILS # (AUTO) 6.4 X10'3 (1.8-7.7); NEUTROPHILS % (AUTO) 76.7 % (42-75); PLATELET COUNT 106 X10'3 (140-440); RED BLOOD COUNT 3.07 X10'6 (4.20-5.60); RED CELL DISTRIBUTION WIDTH 15.7 % (11.5-14.5); WHITE BLOOD COUNT 8.3 X10'3 (4.5-11.0)
[2023-08-11 08:36] LABS: URINE HCG NEGATIVE (NEG)
[2023-08-11 08:44] LABS: BILIRUBIN,URINE NEGATIVE (Neg); CLARITY,URINE CLOUDY (Clear); COLOR,URINE YELLOW (Yellow); GLUCOSE, URINE NEGATIVE (Neg); KETONES,URINE NEGATIVE (Neg); LEUKOCYTE ESTERASE ,URINE NEGATIVE (Neg); NITRITES, URINE NEGATIVE (Neg); OCCULT BLOOD,URINE LARGE (Neg); PROTEIN,URINE NEGATIVE (Neg); UROBILINOGEN,URINE 0.2 E.U/dL (0.2-1.0)
[2023-08-11 08:46] LABS: UA COLLECTION TYPE CLN CATCH MIDSTREAM
[2023-08-11 08:47] LABS: MUCUS STRANDS FEW /LPF (Neg); SQUAMOUS EPITHELIAL CELL,UR MODERATE /LPF (FEW)
[2023-08-11 08:48] LABS: BACTERIA,URINE FEW /HPF (Neg); WBC CLUMPS,URINE FEW /HPF (NEGATIVE)
[2023-08-11 09:01] VITALS: TEMP 98.3
[2023-08-11 09:26] LABS: D-DIMER 1.95 MG/L FEU (0-0.50)
[2023-08-11 09:31] LABS: ABG BASE EXCESS -0.5 mmol/L (-2.0-2.0); ABG HCO3 24.8 mmol/L (22.0-26.0); ABG OXYGEN SATURATION 93.3 % (94-97); ABG PCO2 (T) 42.8 mmHg (32.0-45.0); ABG PH (T) 7.379 (7.350-7.450); ABG PO2 (T) 68.5 mmHg (75.0-100.0); ALLEN'S TEST POSITIVE; FCOHb 0.3 % (0.0-3.9); FHHb 6.7 % (0.0-5.0); FLOW 5 L/min; FMetHb 0.1 % (0.0-1.5); FO2Hb 92.9 % (94-97); MODE NC; PATIENT TEMPERATURE 36.7; TOTAL HEMOGLOBIN 11.6 G/dl (12.0-16.0)
--- NOTE | 2023-08-11 10:20 | NUR ---
OHNardaFS AWARE OF COVID POSITIVE TEST
[2023-08-11] MEDS ORDERED: iohexol 350MG/ML 100ml bottle IV ONE (10:30)
--- NOTE | 2023-08-11 11:58 | NUR ---
PT REFUSING IV FOR CTA. PT STATES SHE WANTS TO LEAVE AMA. DR LUISFS AWARE.
[2023-08-11] MEDS ORDERED: NIRM1TAB PO (12:03)
[2023-08-11 12:29] VITALS: BP 141/95; PULSE 82; RESP 20; O2SAT 98
== END 2023-08-11 12:34 | disposition home or self-care (01) ==
LOC: ER 03:40
DX: U07.1 COVID-19 (principal); I25.10 Atherosclerotic heart disease of native coronary artery without angina pectoris; I11.0 Hypertensive heart disease with heart failure; I50.9 Heart failure, unspecified; F15.90 Other stimulant use, unspecified, uncomplicated; E03.9 Hypothyroidism, unspecified; Z86.73 Personal history of transient ischemic attack (TIA), and cerebral infarction without residual deficits; Z98.891 History of uterine scar from previous surgery; Z88.0 Allergy status to penicillin; Z88.8 Allergy status to other drugs, medicaments and biological substances; Z79.899 Other long term (current) drug therapy
CPT/HCPCS: 36415; 36600; 71045; 71275; 80053; 81001; 81025; 82803; 83605; 83735; 83880; 84145; 84484; 85018; 85025; 85379; 87040; 87088; 87811; 93005; 94640; 96365; 96366; 96368; 99285; J0456; J0696; J2930; J3490; Q9967; 94760; 96375; A4620

== ENCOUNTER 2025-03-18 19:21 | Inpatient (IN) | payer MEDICAID ==
[~2025-03-18] VITALS: Ht 177.8 cm; Wt 173.0 kg
[~2025-03-18 19:21] MED LIST changes: +NIRM1TAB PO
--- NOTE | 2025-03-18 19:39 | Physician Documentation ---
History of Present Illness ~ Stated Complaint: "I AM HAVING A HARD TIME BREATHING, I HAVE CHF" Time Seen by MD: 19:45 Primary Medical Doctor: Jesus HPI 49-year-old female with history of CHF requiring 3 L of oxygen at all times has noticed an increased dyspnea over the past few days and went to take a shower when she was in the shower she ended up having a syncopal episode. Patient states she is compliant with her heart medications including Lasix. 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 Patient denies any significant respiratory history. Patient has noticed more swelling to the lower extremiti es. Medication Reconciliation Allergies: Coded Allergies: Penicillins (Verified Allergy, Intermediate, RASH, N/V, 11/19/22) codeine (Verified Allergy, Intermediate, RASH, N/V, 11/19/22) Scheduled Furosemide (Furosemide), 1 TAB PO DAILY, (Reported) Levothyroxine Sodium* (Levoxyl*), 175 MCG PO DAILY, (Reported) Nirmatrelvir/Ritonavir (Paxlovid Co-Pack (Eua)), 3 EACH PO BID Potassium Chloride (Klor-Con), 1 TAB PO DAILY, (Reported) Scheduled PRN Albuterol Sulfate (Proair Hfa), 2 PUFFS IH BID PRN for SOB or wheezing, (Reported) Past Medical History Past Medical History: CVA/TIA/Stroke, Seizures, Coronary Artery Disease, Congestive Heart Failure, Hypertension, Hypothyroidism, Anxiety, Depression Past Surgical History: , orthopedic surgeries, other Other Past Family History: Mom had stroke, hypertension, and diabetes Alcohol Use: None Drug Use: methamphetamine Lives with: S/O Lives In: Home Occupation: student Review of Systems All Other Systems at this time: Reviewed and Negative Respiratory: Reports: see HPI Cardiovascular: Reports: see HPI Physical Exam General Appearance: alert, WD/WN, no apparent distress Respiratory: lungs clear, decreased breath sounds Chest: no accessory muscle use Cardiovascular: regular rate, rhythm Edema: 3+ Lower Extremity (R), 3+ Lower Extremity (L) Progress Results/Orders Results/Orders Orders - NANCY LUONG MD * Orthostatic Vitals* Q12H (03/18/25 20:35) Cta Chest Pe (03/18/25 ) Page Hospitalist (03/19/25 ) Completed Orders - NANCY LUONG MD D-Dimer (03/18/25 20:35) Cta Chest Pe (03/18/25 ) Furosemide Inj (Lasix Inj) (03/18/25 20:40) Iohexol 350mg/Ml 100ml (Omnipaque 350mg/ (03/18/25 20:42) Medications Received in ER Medications (Trade) Dose Ordered Sig/[place] Route PRN Reason Start Time Stop Time Status Last Admin Dose Admin (Lasix inj) 40 mg ONCE ONCE IV 03/18/25 20:40 03/18/25 20:45 DC 03/18/25 20:40 40 MG Vital Signs 03/18/25 03/18/25 03/18/25 03/18/25 19:31 20:09 20:09 22:33 Temp 98.0 98.3 Pulse 81 70 Resp 16 18 16 B/P (MAP) 169/89 113/69 (84) Pulse Ox 97 98 100 O2 Delivery Nasal Cannula* O2 Flow Rate 0 3 3 FiO2 32 32 03/19/25 00:25 Pulse 66 Resp 16 B/P (MAP) 136/81 (99) Pulse Ox 100 O2 Flow Rate 3.0 Laboratory Tests Test 03/18/25 19:56 03/18/25 22:30 03/19/25 00:29 White Blood Count 7.6 Red Blood Count 3.59 L Hemoglobin 12.3 Hematocrit 36.0 Mean Corpuscular Volume 100.2 H Mean Corpuscular Hemoglobin 34.1 H Mean Corpuscular Hemoglobin Concent 34.1 Red Cell Distribution Width 15.3 H Platelet Count 193 Mean Platelet Volume 8.9 Neutrophils (%) (Auto) 64.4 Lymphocytes (%) (Auto) 24.9 Monocytes (%) (Auto) 5.1 Eosinophils (%) (Auto) 5.1 Basophils (%) (Auto) 0.5 Neutrophils # (Auto) 4.9 Lymphocytes # (Auto) 1.9 Monocytes # (Auto) 0.4 Eosinophils # (Auto) 0.4 Basophils # (Auto) 0.0 CBC Comment Sodium Level 145 Potassium Level 4.2 Chloride Level 105 Carbon Dioxide Level 29.9 Anion Gap 10 Blood Urea Nitrogen 15 Creatinine 1.52 H Estimated GFR/1.73 m2 36 BUN/Creatinine Ratio 9.9 L Glucose Level 97 Calcium Level 8.8 Troponin I High Sensitivity 19 18 19 Pro-B-Type Natriuretic Peptide 131 H Albumin 4.0 Chemistry Comments D-Dimer 0.41 D-Dimer Comment Troponin I High Sens Percent Delta 5 5 Troponin I Hi Sens Absolute Change -1 1 Departure Disposition: ADMITTED INPATIENT Admitted to Inpatient Unit: yes, to hospitalist Admission Level of Care: Med/Surg with Tele Impression: Primary Impression: Syncope Qualified Codes: R55 - Syncope and collapse Additional Impression: Edema of lower extremity Additional Impression Text Assumed care of patient from nurse practitioner Nasra Palacios. Patient in with syncopal episode in the shower. Quite possibly vasovagal but that is difficult to know. Extremities edematous bilaterally and it is causing her a lot of pain. Did give 1 dose of 40 Lasix in the ER. No edema on chest x-ray. Currently on her [address] angio negative for PE. Given the painful extremities and her weight and along with a syncopal episode I feel the patient warrants admission for further evaluation and possibly some mild diuresis. Discussed with the hospitalist team. Patient is stable on admission. Condition: Stable Referrals: NO PRIMARY CARE PROVIDER (PCP) Signature Scribe Signature: No scribe Attestation: No scribe NASRA PALACIOS NP Mar 18, 2025 19:39 NANCY LUONG MD Mar 19, 2025 01:25
[2025-03-18 20:03] LABS: BASOPHILS % (AUTO) 0.5 % (0-1); EOSINOPHILS # (AUTO) 0.4 X10'3 (0-0.9); EOSINOPHILS % (AUTO) 5.1 % (0-6); HEMOGLOBIN 12.3 g/dl (12.0-16.0); LYMPHOCYTES # (AUTO) 1.9 X10'3 (1.1-4.8); LYMPHOCYTES % (AUTO) 24.9 % (21-51); MEAN CORPUSCULAR HEMOGLOBIN 34.1 PG (27.0-31.0); MEAN CORPUSCULAR HGB CONC 34.1 g/dL (33.0-36.5); MEAN CORPUSCULAR VOLUME 100.2 FL (78-98); MEAN PLATELET VOLUME 8.9 FL (7.4-10.4); MONOCYTES # (AUTO) 0.4 X10'3 (0-0.9); MONOCYTES % (AUTO) 5.1 % (2-12); NEUTROPHILS # (AUTO) 4.9 X10'3 (1.8-7.7); NEUTROPHILS % (AUTO) 64.4 % (42-75); PLATELET COUNT 193 X10'3 (140-440); RED BLOOD COUNT 3.59 X10'6 (4.20-5.60); RED CELL DISTRIBUTION WIDTH 15.3 % (11.5-14.5); WHITE BLOOD COUNT 7.6 X10'3 (4.5-11.0)
--- NOTE | 2025-03-18 20:16 | RADIOLOGY REPORT ---
CHEST RADIOGRAPH Indication: CP Technique: Single frontal view of the chest was obtained Comparison: DI CHEST,SINGLE VIEW on DOS: 08/11/23, CHEST,SINGLE VIEW on DOS: 10/17/22, CHEST,SINGLE VIE W on DOS: 03/18/21 FINDINGS: Lines and Tubes: None Lungs: No focal consolidation. Pleura: No effusion. No pneumothorax. Cardiomediastinal contours: Unremarkable Bones: No acute osseous abnormality. IMPRESSION: No acute cardiopulmonary disease.
[2025-03-18 20:25] LABS: ANION GAP 10 (8-16); BLOOD UREA NITROGEN 15 MG/DL (7-18); BUN/CREATININE RATIO 9.9 (10.0-20.0); CALCIUM 8.8 MG/DL (8.5-10.1); CHLORIDE 105 MMOL/L (99-107); CREATININE 1.52 MG/DL (0.40-0.90); GLUCOSE 97 MG/DL (70-104); POTASSIUM 4.2 MMOL/L (3.5-5.1); PRO BRAIN NATRIURETIC PEPTIDE 131 PG/ML (0-125); SODIUM 145 MMOL/L (135-145); TOTAL CARBON DIOXIDE 29.9 MMOL/L (24-32); eCRCL 48 ML/MIN; eGFR 36 ML/MIN
[2025-03-18] MEDS: furosemide 10 MG/1 ML 10ml inj IV ONE (20:40)
[2025-03-18] MEDS ORDERED: iohexol 350MG/ML 100ml bottle IV ONE (20:42)
[2025-03-18 22:51] LABS: D-DIMER 0.41 MG/L FEU (0-0.50)
--- NOTE | 2025-03-19 00:21 | RADIOLOGY REPORT ---
CLINICAL HISTORY: sob, syncope TECHNIQUE: CT angiogram of the chest was performed with intravenous contrast. 100 ml of omnipaque 350 was administered intravenously. 3D MIP reconstructed images were created and archived on the PACS sy stem. This exam was performed according to our departmental dose optimization program. Up-to-date CT equipment and radiation dose reduction techniques are utilized as appropriate. CTDI: 19.39+ 24.91+ 0.14 DLP: 984.74 WID: COMPARISON: CT CTA CHEST PE on DOS: 08/11/23 FINDINGS: Lower Neck: Unremarkable Axilla, Mediastinum and Marcia: Unremarkable. Heart and Great Vessels: Upper limits of normal-sized heart. Trace pericardial fluid. The thoracic a dora is patent and normal caliber. There is no central, segmental, or subsegmental pulmonary artery f illing defects are seen to suggest pulmonary embolism. Airway, Lungs and Pleura: Trachea and central airways are patent. Linear areas of atelectasis or sca rring in both lungs. There is a sub 5 mm subpleural scar or noncalcified granuloma in the anterior ri ght middle lobe. No consolidative pneumonia or pleural effusion. No pneumothorax. Chest Wall and Osseous Structures: Severe degenerative spinal stenosis at C6-C7 and severe degenerati ve left neural foraminal stenosis at C6-C7. Mild multilevel thoracic spondylosis. No destructive osse ous lesion. Upper abdomen: There is hepatic steatosis. No acute abnormality. IMPRESSION: 1. No evidence of pulmonary embolism or pneumonia. 2. Degenerative change visualized at C6-C7 resulting in severe spinal and severe left neural foramina l stenosis. 3. Hepatic steatosis.
[2025-03-19] MEDS ORDERED: potassium Cl 20 mEq SR tablet PO PRN ×2 (01:00)
[2025-03-19] MEDS ORDERED: mag hydrox/Alum hydrox/simeth 30ml oral suspension PO PRN (01:00)
[2025-03-19] MEDS ORDERED: magnesium sulf-water 2g/50mL 50 ML IV PRN (01:00)
[2025-03-19] MEDS ORDERED: magnesium sulf-water 4G/100mL 100 ML IV PRN (01:00)
[2025-03-19] MEDS ORDERED: acetaminophen 325mg tablet PO PRN ×2 (01:00)
[2025-03-19] MEDS ORDERED: magnesium Cl slow-release 64mg tablet PO PRN (01:00)
[2025-03-19] MEDS ORDERED: HYDROcodone/acetaminophen 5mg/325mg tablet PO PRN (01:00)
[2025-03-19] MEDS ORDERED: morphine 2 MG/ML inj. syringe IV PRN (01:00)
[2025-03-19] MEDS ORDERED: potassium Cl 40MEQ/1/2NS 520ml 520 ML IV PRN (01:00)
--- NOTE | 2025-03-19 01:35 | HISTORY AND PHYSICAL-Residence ---
History & Physical Providers to CC Resident Creating Document: JUAN HILARIO, KARAN ~ History of Present Illness Primary Medical Doctor: Dr. Henning Reason for Admit\Complaint: SYNCOPE, SHORTNESS OF BREATHE History of Present Illness 49-year-old female with past medical history of CVA, seizures, coronary artery disease, congestive heart failure, hypertension, hypothyroidism, anxiety, depression presented to the ER with a chief complaints of shortness of breathe and syncope. She reports that she has been with the shortness of breath for quite a long time but it is more aggravated for the past two days and it is associated with orthopnea and PND. Endorses dizziness after shower & when she tried to stand up in the bathroom on yesterday morning. Endorses wheezing, gurgling sounds for the past couple of days. Complaint of generalized weakness, decrease in energy levels, fatigue, sleep disturbances for the past four days. She reports that she is feeling cold for the past three days. Endorses swelling and pain of the legs more aggravated for the past five days. She denied chest pain, palpitations, pain abdomen, abdominal distention, vertigo, burning micturition, bladder and bowel irregularities, appetite changes. Discussed the code status with the patient and patient wants to be in DNR Allergies: Coded Allergies: Penicillins (Verified Allergy, Intermediate, RASH, N/V, 11/19/22) codeine (Verified Allergy, Intermediate, RASH, N/V, 11/19/22) Home Medications Home Medications Active Paxlovid Co-Pack (Eua) (Nirmatrelvir/Ritonavir) 300 Mg (150 Mg X 2)-100 Mg Tablet 3 Each PO BID 5 Days Take 3 tablets--300mg of nirmatrelvir with ritonavir 100mg--(administer together) twice daily for 5 days. Start as soon as possible. Reported Klor-Con (Potassium Chloride) 10 Meq Tab.prt.sr 1 Tab PO DAILY Furosemide 40 Mg Tablet 1 Tab PO DAILY Proair Hfa (Albuterol Sulfate) 1 Puff Inh 2 Puffs IH BID PRN Levoxyl* (Levothyroxine Sodium) 175 Mcg Tablet 175 Mcg PO DAILY Past Medical History Past Medical History CVA/TIA/Stroke, Seizures, Coronary Artery Disease, Congestive Heart Failure, Hypertension, Hypothyroidism, Anxiety, Depression Past Surgical History Surgical History Comment , orthopedic surgeries, Family History Family History: FH: diabetes mellitus FH: hypertension FH: stroke Past Social History Social History Comment She got help at home with [facility] worker Walks with walker Smoking: Non-Smoker Alcohol Use: None Drug Use: Methamphetamine Lives with: Alone Lives In: Home Occupation: student ROS All Other Systems: Reviewed and Negative ROS Reviewed in full and negative except for positive pertinent as in HPI Respiratory: Reports: see HPI Cardiovascular: Reports: see HPI Exam Vitals: Vital Signs Date Time Temp Pulse Resp B/P (MAP) Pulse Ox O2 Delivery O2 Flow Rate FiO2 03/19/25 00:25 66 16 136/81 (99) 100 3.0 03/18/25 22:33 98.3 32 03/18/25 20:09 Nasal Cannula* General: General Appearance: alert, drowsy, oriented to place person., no apparent distress. Obese HEENT: Atraumatic. Eyes and ears nose and throat is normal. JVD is seen. No carotid upstroke. Respiratory: lungs clear, decreased breath sounds. Bilateral infrascapular crepitations present. Occasional expiratory wheeze is present in infrascapular area. Chest: no accessory muscle use Cardiovascular: regular rate, rhythm. No murmur/gallop/rub Gastrointestinal: Soft, nondistended, nontender, no organomegaly, no guarding , no rigidity , no rebound tenderness. Nervous System: Cranial nerves are intact. Sensory system is intact. Deep tendon reflexes are intact. Extremities : 3+ Lower Extremity (R), 3+ Lower Extremity (L). Clubbing is present. No cyanosis Skin: Warm and dry. Stasis eczema is present on bilateral anterior aspects of the leg Diagnostic Data Last Recorded Lab Results: 03/18/25195503/18/251955 Diagnostic Data: Laboratory Tests Test 03/18/25 22:30 D-Dimer 0.41 MG/L FEU (0-0.50) D-Dimer Comment Advance Care Planning Advanced Care planning: Add on additional 30 min Additional Plan Syncope likely secondary to vasovagal versus cardiogenic Above likely secondary to Acute exacerbation of advanced CHF Vitals are stable Macrocytic anemia is noted. Received one dose of [address] angiography ruled out PE Blood pressures initially in 170 and trended down to 130s with Lasix Troponins are negative and proBNP is 131 Ordered urinalysis and U tox Ordered bilateral venous scan of leg we will follow up with the results Ordered echocardiogram on via follow up with the results on start the patient on GDM T medications Ordered CT head to rule out CVA MONICA on CKD, likely secondary to renal tubular stasis Serum creatinine is 1.52. Not on hemodialysis Primary care physician recommended for nephrology consultation and she had not followed up with preparer. Hypothyroidism Medication noncompliance Possible myxedema Order TSH patient is on 300 mcg of levothyroxine at home and we will continue the same dose. TUAN On home oxygen of 3 L we are continuing 3 L of oxygen. Code status: DNR Diet: Heart healthy diet DVT prophylaxis: SubQ heparin PT: Ordered Prognosis: Guarded Juan hilario IM resident Date of Service: Mar 19, 2025 Billing Provider: WILLIAMS DAVIS MD, VENKATESH, RES Mar 19, 2025 01:35 WILLIAMS DAVIS MD Mar 19, 2025 04:07
[2025-03-19] MEDS ORDERED: FURO-150 PO (01:55)
[2025-03-19] MEDS ORDERED: SYN0.088T PO (01:55)
[2025-03-19] MEDS ORDERED: ipratropium/albuterol 3ml nebule NEB PRN (02:10)
[2025-03-19] MEDS: morphine 2 MG/ML inj. syringe IV PRN (02:50)
[2025-03-19 03:55] VITALS: PULSE 67; RESP 18; O2SAT 97
--- NOTE | 2025-03-19 04:00 | RADIOLOGY REPORT ---
Clinical History Syncope Comparison None Technique: Noncontrast CT volume data aquisition of the head viewed in axial, coronal and sagittal pl anes. All CT scans at this medical facility are performed using dose modulation techniques as appropriate t o a performed exam including the following: Automated exposure control was utilized; adjustment of th e mA and/or kV according to patient size; and use of iterative reconstruction technique. All CT studies are reported to the Dose Index Registry of the [employer]. Without Contrast Radiation Dose: CTDI (mGy): 67.74; DLP (mGy-cm): 1308.73 TREVERHUBER, [id number] FINDINGS: Ventricles are of normal size, shape and position. There are no intra-axial or extra-axial collectio ns of blood or fluid. There is no mass, mass effect or shift of midline structures. There is no CT evidence for acute ischemic infarct. MRI is more sensitive for this diagnosis. Posterior fossa structures are unremarkable. Sella and parasellar regions are unremarkable. Basal c isterns are patent. Orbits and orbital contents are unremarkable, paranasal sinuses and mastoid air cells clear, osseous structures intact. IMPRESSION: 1. No significant intracranial pathology identified on noncontrast CT 2. No evidence of acute intracranial hemorrhage. No evidence of skull fracture. This report was electronically signed by Demetrius Randle MD on 03/19/2025 3:57:40 AM.
[2025-03-19 04:16] LABS: MAGNESIUM 2.3 MG/DL (1.5-2.4); POTASSIUM 3.7 MMOL/L (3.5-5.1)
[2025-03-19 05:23] LABS: HEMOGLOBIN A1C 5.9 % (4.5-6.2)
--- NOTE | 2025-03-19 06:41 | ELECTROCARDIOGRAPH REPORT ---
[facility] Test Date: 2025-03-18 Test Time: 19:25:14 Pat Name: HUBER PERERA Department: EMERGENCY ROOM Room: [place] [id number] Gender: F [employer] Mechanic: BETTY : 1975 Requested By: LACIE RODRIGUEZ Order Number: [id number] Reading MD: Measurements Intervals [place] Rate: 79 P: 38 CO: 57 QRS: 40 QRSD: 99 T: -7 QT: 410 QTc: 471 Interpretive Statements Atrial-paced complexes Low voltage, precordial leads Minimal ST depression Please click the below link to view image of tracing.
[2025-03-19 07:02] VITALS: BP 119/67; PULSE 70; RESP 20; TEMP 98.3; O2SAT 98
[2025-03-19] MEDS: furosemide 10 MG/1 ML 10ml inj IV SCH (07:42)
[2025-03-19] MEDS: docusate sod 100mg capsule PO SCH (07:43)
[2025-03-19] MEDS: heparin, porcine 5000 units/ml vial SQ SCH (07:43)
[2025-03-19] MEDS: K and/or MAG REPLACEMENT MC SCH (08:00)
[2025-03-19] MEDS: ondansetron/PF 4mg/2ml inj IV PRN (10:02)
[2025-03-19 11:13] VITALS: BP 121/74; PULSE 68; RESP 10; TEMP 97.5; O2SAT 95
[2025-03-19] MEDS ORDERED: furosemide 40mg/4ml inj IV SCH (11:27)
[2025-03-19 12:34] LABS: BILIRUBIN,URINE NEGATIVE (Neg); CLARITY,URINE CLEAR (Clear); COLOR,URINE Straw (Yellow); GLUCOSE, URINE NEGATIVE (Neg); KETONES,URINE NEGATIVE (Neg); LEUKOCYTE ESTERASE ,URINE SMALL (Neg); NITRITES, URINE NEGATIVE (Neg); OCCULT BLOOD,URINE MODERATE (Neg); PROTEIN,URINE NEGATIVE (Neg); UROBILINOGEN,URINE 0.2 E.U/dL (0.2-1.0)
[2025-03-19 12:35] LABS: UA COLLECTION TYPE NON-SPECIFIED
[2025-03-19 12:41] VITALS: PULSE 65; RESP 18; O2SAT 96
[2025-03-19 12:51] LABS: URINE AMPHETAMINE SCREEN POSITIVE (Neg); URINE BARBITUATE SCREEN NEGATIVE (Neg); URINE BENZODIAZEPINES SCREEN NEGATIVE (Neg); URINE CANNABINOID SCREEN NEGATIVE (Neg); URINE COCAINE SCREEN NEGATIVE (Neg); URINE METHADONE SCREEN NEGATIVE (Neg); URINE OPIATE SCREEN POSITIVE (Neg); URINE PHENCYCLIDINE SCREEN NEGATIVE (Neg)
[2025-03-19] MEDS: LEVOTHYROXINE SODIUM 100 MCG/5 ML injection IV ONE (12:52)
[2025-03-19] MEDS: hydrocortisone sod succ/PF 100mg/2ml inj. IV ONE (12:52)
[2025-03-19 12:55] LABS: RBC,URINE NONE SEEN /HPF (0-2); SQUAMOUS EPITHELIAL CELL,UR FEW /LPF (FEW); WBC,URINE 0-4 /HPF (0-4)
[2025-03-19 12:56] LABS: BACTERIA,URINE 3+ /HPF (Neg); MUCUS STRANDS FEW /LPF (Neg)
--- NOTE | 2025-03-19 16:18 | VASCULAR REPORT ---
VASC VL VENOUS HISTORY: sob COMPARISON: None TECHNIQUE: Duplex doppler evaluation of the deep venous system of the lower extremity from the common femoral veins, superficial femoral vein, great saphenous vein, deep femoral vein, popliteal vein, an d calf veins, including color doppler and spectral/pulsed waveform analysis, was performed. FINDINGS: Right: - Common femoral vein: Compressible - Deep femoral vein: Compressible - Femoral vein: Compressible - Popliteal vein: Compressible - Posterior tibial vein: Waveforms present - Peroneal vein: Waveforms present - Other: Nothing Left: - Common femoral vein: Compressible - Deep femoral vein: Compressible - Femoral vein: Compressible - Popliteal vein: Compressible - Posterior tibial vein: Waveforms present - Peroneal vein: Waveforms present - Other: Nothing IMPRESSION: No right or left lower extremity deep venous thrombosis.
--- NOTE | 2025-03-19 17:21 | PROGRESS NOTE- Residence ---
Progress Note - Resident Providers to CC Resident Creating Document: KAE EDWARDS, RES ~ Antibiotic Timeout Antibiotic Ordered?: Yes Subjective The patient was seen and examined at bedside today. She is extremely lethargic, frequently falling asleep and not opening her eyes. Slow to respond. She is an established hypothyroid but is noncompliant with her medications. She also reported that she uses oxygen at home 3 L. UTox positive for methamphetamines and opiates. Objective Vital Signs Date Time Temp Pulse Resp B/P (MAP) Pulse Ox O2 Delivery O2 Flow Rate FiO2 03/19/25 12:41 65 18 96 Nasal Cannula* 3 32 03/19/25 11:13 97.5 121/74 (90) Result Diagram: 03/18/25195503/19/25 025 Adult female, lethargic, not in acute distress, obese Head: Normocephalic with an atraumatic Eyes: Pupils- 3mm, reacting to light, conjunctiva- anicteric Nose and throat: No polyps, septum- normal, no mucosal ulcers Neck: Supple, no lymphadenopathy, no carotid bruit Respiratory: No use of accessory muscles of respiration, Bilateral normal vesiscular breath sounds heard. No wheeze, rhochi or creps Cardiac: S1-S2 heard, rhythm regular, no gallop/murmur Abdomen: non distended, no tenderness, no organomegaly, bowel sounds - heard Extremities: no clubbing, chronic venous congestion, no deformities, peripheral pulses - 2+, bilateral legs tender Skin: warm and dry, no rash, no purpura Neuro: No focal deficit, gross cranial nerve exam - normal Coagulation Studies Laboratory Tests Test 03/18/25 22:30 D-Dimer 0.41 MG/L FEU (0-0.50) D-Dimer Comment Plan Plan Hypothyroidism Medication noncompliance Myxedema coma can not be ruled out TSH 60.40, free T4 less than 0.2. Pending total T3. Follow up with ACTH and cortisol. Patient received 100 mg hydrocortisone IV this morning. Continue q.8h. Levothyroxine 400 mcg IV administered. Continue 300 mcg IV daily. Liothyronine 10 mcg p.o. administered. Continue 5 mcg daily p.o. Follow up with TSH tomorrow. Continue telemetry and electrolyte monitoring. Substance use disorder Urinary toxicology screen positive for methamphetamines and opiates. Substance use navigator and rn social work consulted. Urinary tract infection, simple cystitis Urinalysis positive for leukocyte esterase, 3+ bacteria. Started the patient on IV ceftriaxone. Syncope likely secondary to vasovagal versus cardiogenic CT head, CTA chest normal. Vitals are stable. Follow up with echocardiogram. MONICA on CKD, likely secondary to renal tubular stasis Serum creatinine is 1.52. Continue monitoring BMP with fluids. TUAN On home oxygen of 3 L. Code status: Full code Diet: Heart healthy diet DVT prophylaxis: SubQ heparin PT: Ordered Prognosis: Guarded Disposition: Continue care in medical chi. Continue IV steroids and thyroid replacement. Follow up with TSH and mentation tomorrow. Kae Edwards MD Internal Medicine Resident, PGY-1 Date of Service: Mar 19, 2025 Billing Provider: SUNITHA PATEL MD,KAE GARCIA, RES Mar 19, 2025 17:21
[2025-03-19] MEDS: CefTRIAXone/D5W-Rocephin 1gm 50 ML IV ONE (17:29)
[2025-03-19] MEDS: liothyronine sod 5mcg tablet PO ONE (17:30)
[2025-03-19] MEDS: normal saline 1000ml 1,000 ML IV SCH (17:53)
[2025-03-19 18:00] VITALS: BP 115/80; PULSE 76; RESP 14; TEMP 97.7; O2SAT 95
[2025-03-19] MEDS: HYDROcodone/acetaminophen 10/325mg tab PO PRN (20:41)
[2025-03-19 22:00] VITALS: BP 124/79; PULSE 84; RESP 12; TEMP 98.1; O2SAT 92
[2025-03-20] VITALS (10 sets, daily range): BP systolic 112–142; BP diastolic 62–83; PULSE 72–98; RESP 10–20; TEMP 97.1–98.7; O2SAT 91–99
[2025-03-20] MEDS: hydrocortisone sod succ/PF 100mg/2ml inj. IV SCH (00:02)
--- NOTE | 2025-03-20 03:12 | CARDIOLOGY REPORT ---
APPROVED REPORT EXAM: Comprehensive 2D, Doppler, and color-flow Echocardiogram. Patient Location: [address] Blood Pressure: 121/74 mmHg Heart Rate: 65 bpm Rhythm: Sinus Rhythm Indications Congestive Heart Failure Hx of CVA Seizures CAD Meth Use Three Dimensional Art Instructor: None Previous echo: 11/10/2020 [facility] EF:65% 2D Dimensions RVDd 3.3 cm LA Diam4.6 cm RA Minor3.9 cmLVOT Diameter 2.06 (1.8-2.4cm) CO 6.1 L/min M-Mode Dimensions RVDd 3.27 (2.1-3.2cm) Left Atrium(MM) 4.45 (2.5-4.0cm) IVSd 1.31 (0.7-1.1cm) LVDd 6.04 (4.0-5.6cm) Aortic Root 3.29 (2.2-3.7cm) PWd 1.31 (0.7-1.1cm) Aortic Cusp Exc 2.26 (1.5-2.0cm) IVSs 1.61 cm MV EPSS 0.7 (<0.5cm) LVDs 4.25 (2.0-3.8cm) FS (%) 33 % PWs 1.57 cm ESV(Teich) 61.0 ml LVEF(%) 61 (>50%) Biplane 2D LA Volumes LA ESV A4C 73.69 mL/m2 Aortic Valve AoV Peak [place]w. 131.4 cm/s AoV VTI 25.4 cm AO Peak GR. 6.9 mmHg AO Mean GR. 3 mmHg LVOT VTI 21.43 cm LVOT Peak Get[place]w. 99.6 cm/s MAXIMINO(VTI)/BSA 2.82 cm2/m2 MAXIMINO (VTI) 2.82 cm2 Mitral Valve MV E Velocity 65.3 cm/s MV Peak Gr. 2 mmHg MV DECEL TIME 176 ms MV A Velocity 59.0 cm/s MV Mean Gr. 1 mmHg MV PHT 60 ms E/A Ratio 1.1 MVA (PHT) 3.67 cm2 MV VMax63.4 cm/sMV VMean36.9 cm/s MVA VTI4.10 cm2MV VTI17.4 cm TDI Medial E' P. V 10.54 cm/s E/Medial E' 6.2 Pulmonary Valve RVOT VTI 19.1 cm Tricuspid Valve TR P. Velocity 226 cm/s RAP ESTIMATE 10 mmHg TR Peak Gr. 20 mmHg RVSP 30 mmHg LEFT VENTRICLE Normal LV size and function. Mild concentric hypertrophy. Overall LVEF is 60%. RIGHT VENTRICLE Right ventricle is mildly dilated with mildly reduced function. Estimated PA systolic pressure is 30 mmHg. ATRIA Left atrium is moderately dilated. The right atrium size is normal. AORTIC VALVE Trileaflet AV appears sclerotic without stenosis or insufficiency. MITRAL VALVE Mild MV annular thickening without stenosis. Trace regurgitation. TRICUSPID VALVE TV appears structurally normal with trace regurgitation. PULMONIC VALVE Normal PV without stenosis, physiologic insufficiency. GREAT VESSELS The aortic root is normal in size. IVC is not well visualized. PERICARDIUM Grosly normal pericardium. No pericardial effusion seen. Other Information Study Quality: Fair Conclusion Normal LV size and function. Mild concentric hypertrophy. Overall LVEF is 60%. Right ventricle is mildly dilated with mildly reduced function. Estimated PA systolic pressure is 30 mmHg. Left atrium is moderately dilated. The right atrium size is normal. Trileaflet AV appears sclerotic without stenosis or insufficiency. Mild MV annular thickening without stenosis. Trace regurgitation. TV appears structurally normal with trace regurgitation. Grosly normal pericardium. No pericardial effusion seen.
[2025-03-20 06:14] LABS: BASOPHILS % (AUTO) 0.2 % (0-1); EOSINOPHILS % (AUTO) 0.2 % (0-6); HEMATOCRIT 35.6 % (35.0-45.0); HEMOGLOBIN 11.9 g/dl (12.0-16.0); LYMPHOCYTES # (AUTO) 1.1 X10'3 (1.1-4.8); LYMPHOCYTES % (AUTO) 10.8 % (21-51); MEAN CORPUSCULAR HEMOGLOBIN 34.1 PG (27.0-31.0); MEAN CORPUSCULAR HGB CONC 33.5 g/dL (33.0-36.5); MEAN CORPUSCULAR VOLUME 101.6 FL (78-98); MEAN PLATELET VOLUME 9.9 FL (7.4-10.4); MONOCYTES # (AUTO) 0.4 X10'3 (0-0.9); MONOCYTES % (AUTO) 3.7 % (2-12); NEUTROPHILS # (AUTO) 8.8 X10'3 (1.8-7.7); NEUTROPHILS % (AUTO) 85.1 % (42-75); PLATELET COUNT 153 X10'3 (140-440); RED BLOOD COUNT 3.51 X10'6 (4.20-5.60); WHITE BLOOD COUNT 10.3 X10'3 (4.5-11.0)
[2025-03-20 07:53] LABS: ALANINE AMINOTRANSFERASE 31 U/L (12-78); ALBUMIN/GLOBULIN RATIO 0.9 (1.1-1.5); ALKALINE PHOSPHATASE 99 IU/L (46-116); ANION GAP 6 (8-16); ASPARTATE AMINO TRANSFERASE 37 U/L (10-37); BILIRUBIN,TOTAL 0.3 MG/DL (0.1-1.0); BLOOD UREA NITROGEN 19 MG/DL (7-18); BUN/CREATININE RATIO 11.5 (10.0-20.0); CHLORIDE 101 MMOL/L (99-107); CHOL/HDL RATIO 6.6 (0.00-4.99); CHOLESTEROL 237 MG/DL (0-200); CREATININE 1.65 MG/DL (0.40-0.90); GLUCOSE 137 MG/DL (70-104); HDL CHOLESTEROL 36 MG/DL (35-60); LDL CHOLESTEROL 169 MG/DL (50-100); MAGNESIUM 2.1 MG/DL (1.5-2.4); POTASSIUM 4.5 MMOL/L (3.5-5.1); SODIUM 139 MMOL/L (135-145); TOTAL CARBON DIOXIDE 31.9 MMOL/L (24-32); TOTAL PROTEIN 8.5 G/DL (6.4-8.2); TRIGLYCERIDES 95 MG/DL (20-135); eCRCL 45 ML/MIN; eGFR 33 ML/MIN
[2025-03-20] MEDS ORDERED: levoTHYROXINE 100mcg tablet PO SCH (08:00)
[2025-03-20] MEDS: CefTRIAXone/D5W-Rocephin 1gm 50 ML IV SCH (09:20)
[2025-03-20] MEDS: LEVOTHYROXINE SODIUM 100 MCG/5 ML injection IV SCH (09:20)
[2025-03-20] MEDS: liothyronine sod 5mcg tablet PO SCH (09:21)
[2025-03-20] MEDS: atorvastatin 20mg tablet PO SCH (09:22)
--- NOTE | 2025-03-20 15:20 | PROGRESS NOTE- Residence ---
Progress Note - Resident Providers to CC Resident Creating Document: KAE EDWARDS, RES ~ Antibiotic Timeout Antibiotic Ordered?: Yes Subjective The patient was seen and examined at bedside today. She is still lethargic slow to respond and falling asleep but responded when I spoke to her regarding her abnormal thyroid tests. She said she will start being compliant with the medications and quit methamphetamines when she is discharged. Her TSH is getting better. Objective Vital Signs Date Time Temp Pulse Resp B/P (MAP) Pulse Ox O2 Delivery O2 Flow Rate FiO2 03/20/25 11:00 97.3 72 12 116/74 (88) 92 Nasal Cannula 3.0 03/20/25 02:40 32 Result Diagram: 03/20/25 0540 03/20/25 0540 Adult female, lethargic, not in acute distress, obese Head: Normocephalic with an atraumatic Eyes: Pupils- 3mm, reacting to light, conjunctiva- anicteric Nose and throat: No polyps, septum- normal, no mucosal ulcers Neck: Supple, no lymphadenopathy, no carotid bruit Respiratory: No use of accessory muscles of respiration, Bilateral normal vesiscular breath sounds heard. No wheeze, rhochi or creps Cardiac: S1-S2 heard, rhythm regular, no gallop/murmur Abdomen: non distended, no tenderness, no organomegaly, bowel sounds - heard Extremities: no clubbing, chronic venous congestion, no deformities, peripheral pulses - 2+, bilateral legs tender Skin: warm and dry, no rash, no purpura Neuro: No focal deficit, gross cranial nerve exam - normal Coagulation Studies Laboratory Tests Test 03/18/25 22:30 D-Dimer 0.41 MG/L FEU (0-0.50) D-Dimer Comment Plan Plan Hypothyroidism Medication noncompliance Myxedema coma, can not be ruled out TSH 60.40, free T4 less than 0.2. Pending total T3. Repeat TSH is 25.30. Follow up with ACTH and cortisol. Continue hydrocortisone 100 mg IV q.8h. Continue levothyroxine 300 mcg IV daily. Continue liothyronine 5 mcg daily p.o. Follow up with TSH tomorrow. Continue telemetry and electrolyte monitoring. Substance use disorder Urinary toxicology screen positive for methamphetamines and opiates. Substance use navigator and elementary school social worker consulted. Urinary tract infection, simple cystitis Urinalysis positive for leukocyte esterase, 3+ bacteria. Started the patient on IV ceftriaxone. Syncope likely secondary to vasovagal versus cardiogenic CT head, CTA chest normal. Vitals are stable. EF 60%, RVSP 30 mmHg, moderate LA dilation no major structural abnormalities. MONICA on CKD, likely secondary to renal tubular stasis Serum creatinine is 1.65. Continue monitoring BMP with fluids. TUAN On home oxygen of 3 L. Code status: Full code Diet: Heart healthy diet DVT prophylaxis: SubQ heparin PT: Home independent Prognosis: Guarded Disposition: Continue care in medical chi. Continue IV steroids and thyroid replacement. Anticipate discharge in the next 24-48 hours. Kae Edwards MD Internal Medicine Resident, PGY-1 Seen and examined with resident at bedside agree with the above Date of Service: Mar 20, 2025 Billing Provider: LUZ MARINA BURTON MD Common Visit Codes: [id number] INP/OBS CARE(HIGH) KAE EDWARDS, RES Mar 20, 2025 15:20 LUZ MARINA BURTON MD Mar 23, 2025 11:47
[2025-03-21] VITALS (8 sets, daily range): BP systolic 100–145; BP diastolic 45–88; PULSE 63–86; RESP 14–24; TEMP 97.2–98.1; O2SAT 97–99
[2025-03-21 09:50] LABS: BASOPHILS % (AUTO) 0.2 % (0-1); EOSINOPHILS % (AUTO) 0.1 % (0-6); HEMATOCRIT 36.5 % (35.0-45.0); HEMOGLOBIN 11.9 g/dl (12.0-16.0); LYMPHOCYTES # (AUTO) 1.8 X10'3 (1.1-4.8); LYMPHOCYTES % (AUTO) 10.3 % (21-51); MEAN CORPUSCULAR HGB CONC 32.6 g/dL (33.0-36.5); MEAN CORPUSCULAR VOLUME 101.2 FL (78-98); MEAN PLATELET VOLUME 9.7 FL (7.4-10.4); MONOCYTES # (AUTO) 0.9 X10'3 (0-0.9); MONOCYTES % (AUTO) 5.4 % (2-12); NEUTROPHILS # (AUTO) 14.6 X10'3 (1.8-7.7); PLATELET COUNT 191 X10'3 (140-440); RED CELL DISTRIBUTION WIDTH 15.1 % (11.5-14.5); WHITE BLOOD COUNT 17.4 X10'3 (4.5-11.0)
[2025-03-21 09:59] LABS: ALANINE AMINOTRANSFERASE 29 U/L (12-78); ALBUMIN 3.7 G/DL (3.4-5.0); ALBUMIN/GLOBULIN RATIO 0.8 (1.1-1.5); ALKALINE PHOSPHATASE 92 IU/L (46-116); ANION GAP 4 (8-16); ASPARTATE AMINO TRANSFERASE 26 U/L (10-37); BILIRUBIN,TOTAL 0.2 MG/DL (0.1-1.0); BLOOD UREA NITROGEN 16 MG/DL (7-18); BUN/CREATININE RATIO 10.9 (10.0-20.0); CALCIUM 8.5 MG/DL (8.5-10.1); CHLORIDE 103 MMOL/L (99-107); CREATININE 1.47 MG/DL (0.40-0.90); FREE T4 (FREE THYROXINE) 0.64 NG/DL (0.73-1.40); GLUCOSE 122 MG/DL (70-104); MAGNESIUM 2.1 MG/DL (1.5-2.4); POTASSIUM 3.8 MMOL/L (3.5-5.1); SODIUM 143 MMOL/L (135-145); THYROID STIMULATING HORMONE 19.27 ulU/ml (0.34-4.50); TOTAL CARBON DIOXIDE 36.3 MMOL/L (24-32); TOTAL PROTEIN 8.1 G/DL (6.4-8.2); eCRCL 50 ML/MIN; eGFR 38 ML/MIN
--- NOTE | 2025-03-21 15:34 | PROGRESS NOTE- Residence ---
Progress Note - Resident Providers to CC Resident Creating Document: KAE EDWARDS, RES ~ Antibiotic Timeout Antibiotic Ordered?: Yes Subjective The patient was seen and examined at bedside today. She is waking up more today compared to yesterday. She did not remember any discussion we had regarding her thyroid medication noncompliance and methamphetamine use yesterday. She is still very confident about stopping methamphetamines after discharge. She is a daily priority for physical therapy. Objective Vital Signs Date Time Temp Pulse Resp B/P (MAP) Pulse Ox O2 Delivery O2 Flow Rate FiO2 03/21/25 14:05 19 03/21/25 11:00 97.6 63 125/54 (77) 97 Nasal Cannula 3.0 03/20/25 23:54 32 Result Diagram: 03/21/25 0920 03/21/25 0920 Adult female, lethargic, not in acute distress, obese Head: Normocephalic with an atraumatic Eyes: Pupils- 3mm, reacting to light, conjunctiva- anicteric Nose and throat: No polyps, septum- normal, no mucosal ulcers Neck: Supple, no lymphadenopathy, no carotid bruit Respiratory: No use of accessory muscles of respiration, Bilateral normal vesiscular breath sounds heard. No wheeze, rhochi or creps Cardiac: S1-S2 heard, rhythm regular, no gallop/murmur Abdomen: non distended, no tenderness, no organomegaly, bowel sounds - heard Extremities: no clubbing, chronic venous congestion, no deformities, peripheral pulses - 2+, bilateral legs tender Skin: warm and dry, no rash, no purpura Neuro: No focal deficit, gross cranial nerve exam - normal Coagulation Studies Laboratory Tests Test 03/18/25 22:30 D-Dimer 0.41 MG/L FEU (0-0.50) D-Dimer Comment Plan Plan Hypothyroidism Medication noncompliance Myxedema coma, can not be ruled out TSH trending down and free T4 trending up. Follow up with ACTH and cortisol. Continue hydrocortisone 100 mg IV q.8h. Continue levothyroxine 300 mcg IV daily. Continue liothyronine 5 mcg daily p.o. Continue telemetry and electrolyte monitoring. Discharge recommendations - continue home levothyroxine 300 mcg p.o. daily and maintain compliance. Patient has an [facility] worker helping her out every day. Substance use disorder Urinary toxicology screen positive for methamphetamines and opiates. Substance use navigator and social scientist consulted. Urinary tract infection, simple cystitis Urinalysis positive for leukocyte esterase, 3+ bacteria. Started the patient on IV ceftriaxone. Syncope likely secondary to vasovagal versus cardiogenic CT head, CTA chest normal. Vitals are stable. EF 60%, RVSP 30 mmHg, moderate LA dilation no major structural abnormalities. MONICA on CKD, likely secondary to renal tubular stasis Kidney function getting better with fluids. Continue monitoring BMP with fluids. TUAN On home oxygen of 3 L. Code status: Full code Diet: Heart healthy diet DVT prophylaxis: SubQ heparin PT: Home independent Prognosis: Guarded Disposition: Continue care in medical chi. Continue IV steroids and thyroid replacement. Anticipate discharge in the next 24-48 hours. Kae Edwards MD Internal Medicine Resident, PGY-1 Seen and examined with resident at bedside agree with the above Date of Service: Mar 21, 2025 Billing Provider: LUZ MARINA BURTON MD Common Visit Codes: [id number] INP/OBS CARE(HIGH) KAE EDWARDS, RES Mar 21, 2025 15:34 LUZ MARINA BURTON MD Mar 23, 2025 11:51
[2025-03-22 03:50] VITALS: BP 108/63; PULSE 74; RESP 25; TEMP 97.2; O2SAT 98
[2025-03-22 05:43] LABS: BASOPHILS % (AUTO) 0.3 % (0-1); EOSINOPHILS % (AUTO) 0.2 % (0-6); HEMOGLOBIN 11.6 g/dl (12.0-16.0); LYMPHOCYTES # (AUTO) 1.4 X10'3 (1.1-4.8); LYMPHOCYTES % (AUTO) 9.6 % (21-51); MEAN CORPUSCULAR HEMOGLOBIN 33.5 PG (27.0-31.0); MEAN CORPUSCULAR HGB CONC 33.2 g/dL (33.0-36.5); MEAN PLATELET VOLUME 9.3 FL (7.4-10.4); MONOCYTES # (AUTO) 0.6 X10'3 (0-0.9); MONOCYTES % (AUTO) 4.4 % (2-12); NEUTROPHILS # (AUTO) 12.6 X10'3 (1.8-7.7); NEUTROPHILS % (AUTO) 85.5 % (42-75); PLATELET COUNT 185 X10'3 (140-440); RED BLOOD COUNT 3.46 X10'6 (4.20-5.60); RED CELL DISTRIBUTION WIDTH 15.2 % (11.5-14.5); WHITE BLOOD COUNT 14.8 X10'3 (4.5-11.0)
[2025-03-22 06:03] LABS: ALANINE AMINOTRANSFERASE 25 U/L (12-78); ALBUMIN 3.5 G/DL (3.4-5.0); ALBUMIN/GLOBULIN RATIO 0.8 (1.1-1.5); ALKALINE PHOSPHATASE 89 IU/L (46-116); ANION GAP 8 (8-16); ASPARTATE AMINO TRANSFERASE 19 U/L (10-37); BILIRUBIN,TOTAL 0.2 MG/DL (0.1-1.0); BLOOD UREA NITROGEN 17 MG/DL (7-18); BUN/CREATININE RATIO 12.9 (10.0-20.0); CALCIUM 8.7 MG/DL (8.5-10.1); CHLORIDE 106 MMOL/L (99-107); CREATININE 1.32 MG/DL (0.40-0.90); GLUCOSE 134 MG/DL (70-104); MAGNESIUM 2.1 MG/DL (1.5-2.4); POTASSIUM 3.9 MMOL/L (3.5-5.1); SODIUM 145 MMOL/L (135-145); TOTAL CARBON DIOXIDE 31.2 MMOL/L (24-32); TOTAL PROTEIN 7.7 G/DL (6.4-8.2); eCRCL 56 ML/MIN; eGFR 43 ML/MIN
[2025-03-22 07:00] VITALS: BP 132/56; PULSE 76; RESP 16; TEMP 97.2; O2SAT 96
[2025-03-22 08:00] VITALS: BP_SYST 120; BP_SYST 134; BP_DIAS 70; BP_DIAS 74; PULSE 67; PULSE 68
[2025-03-22] MEDS: magnesium hydroxide 30ml (MOM) UD suspension PO PRN (08:22)
[2025-03-22 10:01] VITALS: PULSE 79; RESP 16; O2SAT 95
[2025-03-22 10:36] VITALS: BP 134/74; PULSE 67; RESP 11; TEMP 97.7; O2SAT 99
[2025-03-22] MEDS: gabapentin 100mg capsule PO ONE (12:12)
--- NOTE | 2025-03-22 13:14 | RADIOLOGY REPORT ---
CLINICAL INDICATION: PAIN LT. FOOT TECHNIQUE: DI FOOT, COMPLETE (3VW MIN), DI ANKLE, COMPLETE(3VW MIN) Comparison: None FINDINGS/IMPRESSION: : There is no evidence of acute fracture or dislocation. Diffuse soft-tissue edema and swelling. Degenerative spurring of the calcaneus. Plate and screw fixation of the ankle joint.
[2025-03-22] MEDS ORDERED: CIPR-259 PO (13:42)
[2025-03-22] MEDS ORDERED: ATOR20TA66 PO (13:42)
--- NOTE | 2025-03-22 16:50 | DISCHARGE SUMMARY-Residence ---
Discharge Summary Providers to Resident Creating Document: DEJAN EDWARDS, RES ~ Discharge Summary Admission Diagnosis: [facility] Hospital Course DATE OF ADMISSION: 03/19/2025 DATE OF DISCHARGE: 03/22/2025 Imaging: Chest/thorax CTA 03/18/2025: 1. No evidence of pulmonary embolism or pneumonia. 2. Degenerative change visualized at C6-C7 resulting in severe spinal and severe left neural foraminal stenosis. 3. Hepatic steatosis. Chest x-ray 03/18/2025: No acute cardiopulmonary disease. Echocardiogram 03/19/2025: Normal LV size and function. Mild concentric hypertrophy. Overall LVEF is 60%. Right ventricle is mildly dilated with mildly reduced function. Estimated PA systolic pressure is 30 mmHg. Left atrium is moderately dilated. The right atrium size is normal. Trileaflet AV appears sclerotic without stenosis or insufficiency. Mild MV annular thickening without stenosis. Trace regurgitation. TV appears structurally normal with trace regurgitation. Grosly normal pericardium. No pericardial effusion seen. Venous ultrasound bilateral lower extremity 03/19/2025: No right or left lower extremity deep venous thrombosis. CT head 03/19/2025: 1. No significant intracranial pathology identified on noncontrast CT. 2. No evidence of acute intracranial hemorrhage. No evidence of skull fracture. X-ray foot left 03/22/2025: There is no evidence of acute fracture or dislocation. Diffuse soft-tissue edema and swelling. Degenerative spurring of the calcaneus. Plate and screw fixation of the ankle joint. X-ray ankle left 03/22/2025: There is no evidence of acute fracture or dislocation. Diffuse soft-tissue edema and swelling. Degenerative spurring of the calcaneus. Plate and screw fixation of the ankle joint. Discharge Diagnosis\Comment: Hypothyroidism Medication noncompliance Myxedema coma, can not be ruled out Substance use disorder Urinary tract infection, simple cystitis Syncope likely secondary to vasovagal versus cardiogenic MONICA on CKD, likely secondary to renal tubular stasis TUAN Operations\Procedures: None Consultants: None Complications: None Condition on DC: Stable New Medications: Ciprofloxacin HCl (Cipro) 500 Mg Tablet 1 TAB PO Q12H for 3 Days, #6 TAB Atorvastatin Calcium (Atorvastatin Calcium) 20 Mg Tablet 40 MG PO DAILY for 30 Days, #30 TAB Continued Medications: Albuterol Sulfate (Proair Hfa) 1 Puff Inh 2 PUFFS IH BID PRN for SOB or wheezing Furosemide* (Lasix*) 20 Mg Tablet 2 TAB PO BID for 30 Days, #30 TAB Levothyroxine Sodium* (Synthroid*) 88 Mcg Tablet 300 MCG PO DAILY for 30 Days, #30 TAB Potassium Chloride (Klor-Con) 10 Meq Tab.prt.sr 1 TAB PO DAILY Discharge Summary: History of present illness by the admitting physician: A 49-year-old female with past medical history of CVA, seizures, coronary artery disease, congestive heart failure, hypertension, hypothyroidism, anxiety, depression presented to the ER with a chief complaints of shortness of breathe and syncope. She reports that she has been with the shortness of breath for quite a long time but it is more aggravated for the past two days and it is associated with orthopnea and PND. Endorses dizziness after shower & when she tried to stand up in the bathroom on yesterday morning. Endorses wheezing, gurgling sounds for the past couple of days. Complaint of generalized weakness, decrease in energy levels, fatigue, sleep disturbances for the past four days. She reports that she is feeling cold for the past three days. Endorses swelling and pain of the legs more aggravated for the past five days. She denied chest pain, palpitations, pain abdomen, abdominal distention, vertigo, burning micturition, bladder and bowel irregularities, appetite changes. Course in the hospital: In the ED, CT head done which was negative for any acute intracranial process. CTA chest was done to rule out PE. Her TSH was 60.40 and free T4 was less than 0.2, total T3 40. Acth was drawn and the patient was started on IV hydrocortisone 100 mg q.8h and one dose of IV levothyroxine 400 mcg + 10 mcg liothyronine PO was given. Continued her home dose levothyroxine 300 mcg IV daily in addition to liothyronine 5 mcg p.o. daily. Over the next 2-3 days, there has been an improvement in the patient's mentation. TSH has trended down and free T4 has trended up. The patient's urine drug screen was also positive for methamphetamines and opiates. Substance use navigator has seen the patient and given some resources. The patient was confident that she was going to quit methamphetamines after discharge. Her urinalysis was also positive for leukocyte esterase and her cultures grew Proteus sensitive to ceftriaxone. She received three days of IV ceftriaxone. Her MONICA improved with IV fluids. Lipid panel showed high LDL of 169. Atorvastatin 20 mg started. The patient also complained of her left leg pain. DVT ruled out with venous ultrasound, acute fracture ruled out with x-rays and cellulitis was ruled out as the patient's feet were not warm and there were no features of infection. On the day of discharge, the patient was stable and said that her father was going to pick her up. Advice at discharge: Follow up with your PCP in 1-2 weeks. Please maintain compliance with your thyroid medication. Continue levothyroxine 300 mcg daily. Repeat TSH and free T4 in one month with PCP. Your cholesterol levels are also very high. Started you on some cholesterol lowering medications, statins. Maintain compliance to avoid strokes or heart attacks. Maintain strict abstinence from methamphetamines and other illicit drugs, alcohol and cigarettes. Continue antibiotic ciprofloxacin twice daily for three more days for your urinary tract infection. In the event of worsening of symptoms, call 911 or go to the ER immediately. Examination at discharge: Adult female, awake and alert, not in acute distress, obese Head: Normocephalic with an atraumatic Eyes: Pupils- 3mm, reacting to light, conjunctiva- anicteric Nose and throat: No polyps, septum- normal, no mucosal ulcers Neck: Supple, no lymphadenopathy, no carotid bruit Respiratory: No use of accessory muscles of respiration, Bilateral normal vesiscular breath sounds heard. No wheeze, rhochi or creps Cardiac: S1-S2 heard, rhythm regular, no gallop/murmur Abdomen: non distended, no tenderness, no organomegaly, bowel sounds - heard Extremities: no clubbing, chronic venous congestion, no deformities, peripheral pulses - 2+, bilateral legs tender Skin: warm and dry, no rash, no purpura Neuro: No focal deficit, gross cranial nerve exam - normal Vital Signs Date Time Temp Pulse Resp B/P (MAP) Pulse Ox O2 Delivery O2 Flow Rate FiO2 03/22/25 10:36 97.7 67 11 134/74 (94) 99 Nasal Cannula 2.0 03/22/25 10:01 28 Laboratory Tests Test 03/21/25 09:20 03/22/25 05:23 White Blood Count 17.4 X10'3 14.8 X10'3 Red Blood Count 3.60 X10'6 3.46 X10'6 Hemoglobin 11.9 g/dl 11.6 g/dl Hematocrit 36.5 % 35.0 % Mean Corpuscular Volume 101.2 FL 101.0 FL Mean Corpuscular Hemoglobin 33.0 PG 33.5 PG Mean Corpuscular Hemoglobin Concent 32.6 g/dL 33.2 g/dL Red Cell Distribution Width 15.1 % 15.2 % Platelet Count 191 X10'3 185 X10'3 Mean Platelet Volume 9.7 FL 9.3 FL Neutrophils (%) (Auto) 84.0 % 85.5 % Lymphocytes (%) (Auto) 10.3 % 9.6 % Monocytes (%) (Auto) 5.4 % 4.4 % Eosinophils (%) (Auto) 0.1 % 0.2 % Basophils (%) (Auto) 0.2 % 0.3 % Neutrophils # (Auto) 14.6 X10'3 12.6 X10'3 Lymphocytes # (Auto) 1.8 X10'3 1.4 X10'3 Monocytes # (Auto) 0.9 X10'3 0.6 X10'3 Eosinophils # (Auto) 0.0 X10'3 0.0 X10'3 Basophils # (Auto) 0.0 X10'3 0.0 X10'3 CBC Comment Sodium Level 143 MMOL/L 145 MMOL/L Potassium Level 3.8 MMOL/L 3.9 MMOL/L Chloride Level 103 MMOL/L 106 MMOL/L Carbon Dioxide Level 36.3 MMOL/L 31.2 MMOL/L Anion Gap 4 8 Blood Urea Nitrogen 16 MG/DL 17 MG/DL Creatinine 1.47 MG/DL 1.32 MG/DL Estimated GFR/1.73 m2 38 ML/MIN 43 ML/MIN BUN/Creatinine Ratio 10.9 12.9 Glucose Level 122 MG/DL 134 MG/DL Calcium Level 8.5 MG/DL 8.7 MG/DL Magnesium Level 2.1 MG/DL 2.1 MG/DL Total Bilirubin 0.2 MG/DL 0.2 MG/DL Aspartate Amino Transf (AST/SGOT) 26 U/L 19 U/L Alanine Aminotransferase (ALT/SGPT) 29 U/L 25 U/L Alkaline Phosphatase 92 IU/L 89 IU/L Total Protein 8.1 G/DL 7.7 G/DL Albumin 3.7 G/DL 3.5 G/DL Globulin 4.4 G/DL 4.2 G/DL Albumin/Globulin Ratio 0.8 0.8 Thyroid Stimulating Hormone (TSH) 19.27 ulU/ml Free Thyroxine 0.64 NG/DL Chemistry Comments *Problems/Diagnosis: (1) Myxedema (2) Hypothyroidism (3) UTI (urinary tract infection) (4) MONICA (acute kidney injury) Total Time Spent on D/C: > 30 Minutes Counseling Services Smoking & Tobacco Cessation: > 10 Minutes Date of Service: Mar 22, 2025 Billing Provider: LUZ MARINA BURTON MD, SOWMYA MANJARI, RES Mar 22, 2025 16:50
[2025-03-22] MEDS ORDERED: HYDR-3965 PO (21:45)
== END 2025-03-22 14:55 | disposition home or self-care (01) | DRG 469 ==
LOC: ER 19:22 → ED HOLD 03-19 01:06 → PCU 3S 03-19 03:15
PROVIDERS: ADMIT Surgery Surgical Critical Care; ATTEND Family Medicine
PROC: B32T1ZZ Computerized Tomography (CT Scan) of Left Pulmonary Artery using Low Osmolar Contrast (ICD-10-PCS; principal; 2025-03-18)
PROC: B3201ZZ Computerized Tomography (CT Scan) of Thoracic Aorta using Low Osmolar Contrast (ICD-10-PCS; 2025-03-18)
PROC: B32S1ZZ Computerized Tomography (CT Scan) of Right Pulmonary Artery using Low Osmolar Contrast (ICD-10-PCS; 2025-03-18)
DX: N17.0 Acute kidney failure with tubular necrosis (principal); E03.5 Myxedema coma; I13.0 Hypertensive heart and chronic kidney disease with heart failure and stage 1 through stage 4 chronic kidney disease, or unspecified chronic kidney disease; N30.80 Other cystitis without hematuria; Z66 Do not resuscitate; F32.A Depression, unspecified; F41.9 Anxiety disorder, unspecified; F15.90 Other stimulant use, unspecified, uncomplicated; G47.33 Obstructive sleep apnea (adult) (pediatric); I25.10 Atherosclerotic heart disease of native coronary artery without angina pectoris; Z86.73 Personal history of transient ischemic attack (TIA), and cerebral infarction without residual deficits; Z88.0 Allergy status to penicillin; Z88.5 Allergy status to narcotic agent; Z98.891 History of uterine scar from previous surgery; Z82.3 Family history of stroke; Z91.148 Patient's other noncompliance with medication regimen for other reason
CPT/HCPCS: 36415; 70460; 71045; 71275; 73610; 73630; 80048; 80053; 80061; 80305; 81001; 82024; 83036; 83735; 83880; 84132; 84439; 84443; 84480; 84484; 85025; 85379; 87077; 87081; 87088; 87186; 93005; 93306; 93970; 94760; 96374; 97110; 97116; 97162; 97164; 97530; 99285; A4615; G0378; J0696; J1644; J1720; J1938; J2270; J2405; J3490; J7030; Q9967

== ENCOUNTER 2025-03-22 17:48 | Emergency (ER) | payer MEDICAID ==
[~2025-03-22] VITALS: Ht 177.8 cm; Wt 159.1 kg
[~2025-03-22 17:48] MED LIST changes: +ATOR20TA66 PO; +CIPR-259 PO; +FURO-150 PO; +SYN0.088T PO
[2025-03-22 17:54] VITALS: BP 155/89; PULSE 85; RESP 18; O2SAT 98
[2025-03-22] MEDS: OXYcodone (OXYCONTIN) Ext Release 15 MG TAB.SR.12H PO STA (20:01)
--- NOTE | 2025-03-22 21:37 | Physician Documentation ---
History of Present Illness ~ Chief Complaint: Foot pain Stated Complaint: LEGS Time Seen by MD: 20:52 Primary Medical Doctor: Dr. Henning [facility] This is a 49-year-old female who presents with left forefoot and toe pain, patient reports she was discharged from the hospital earlier today after being seen for shortness of breath and hypothyroid, patient reports that she has been experiencing this pain hospitalized though it was controlled with pain medications, she reports she was discharged without prescription for an pain medication. Review of records indicate patient was evaluated for foot pain with x-ray demonstrating no fracture or dislocation. Tetanus witin 5 years: Yes Medication Reconciliation Allergies: Coded Allergies: Penicillins (Verified Allergy, Intermediate, RASH, N/V, 03/22/25) codeine (Verified Allergy, Intermediate, RASH, N/V, 03/22/25) Scheduled Atorvastatin Calcium (Atorvastatin Calcium), 40 MG PO DAILY Ciprofloxacin HCl (Cipro), 1 TAB PO Q12H Furosemide* (Lasix*), 2 TAB PO BID, (Reported) Levothyroxine Sodium* (Synthroid*), 300 MCG PO DAILY, (Reported) Potassium Chloride (Klor-Con), 1 TAB PO DAILY, (Reported) Scheduled PRN Albuterol Sulfate (Proair Hfa), 2 PUFFS IH BID PRN for SOB or wheezing, (Reported) Hydrocodone Bit/Acetaminophen 5/325 MG ([place] 5/325 MG), 1 TAB PO Q6H PRN for pain Discontinued Medications Furosemide (Furosemide), 1 TAB PO DAILY, (Reported) Discontinued Reason: patient no longer taking Levothyroxine Sodium* (Levoxyl*), 175 MCG PO DAILY, (Reported) Discontinued Reason: patient no longer taking Nirmatrelvir/Ritonavir (Paxlovid Co-Pack (Eua)), 3 EACH PO BID Discontinued Reason: patient no longer taking Past Medical History Past Medical History: CVA/TIA/Stroke, Seizures, Coronary Artery Disease, Congestive Heart Failure, Hypertension, Hypothyroidism, Anxiety, Depression Past Surgical History: , orthopedic surgeries, other Patient History: FH: diabetes mellitus FH: hypertension FH: stroke Other Past Family History: Mom had stroke, hypertension, and diabetes Alcohol Use: None Drug Use: methamphetamine Lives with: Alone Lives In: Home Occupation: student Review of Systems ROS Left foot pain as stated above in the HPI, otherwise all systems are reviewed and negative. Physical Exam Vital Signs: Temperature: 97.9, Source: Temporal, Heart Rate: 85, Respiratory Rate: 18, BP: 155/89, Pulse Oximetry: 98, Weight: 159.090 Physical Exam VITALS: Reviewed and as above. GENERAL: Alert, nontoxic appearing, no apparent distress. RESPIRATORY: No increased work of breathing, no respiratory distress, speaking in full clear sentences CV: Bilateral nonpitting edema to lower extremities, pedal pulse strong and intact in left foot, capillary refill brisk in left foot and toes MUSCULOSKELETAL: Left toes tender to palpation, remainder of left foot nontender to palpation, no deformity, no increased swelling or redness as compared to right foot, no ecchymosis Progress Results/Orders Results/Orders Completed Orders - TERRANCE DONIS TEAM PSYCHOLOGIST Hydrocodone/Apap 10/325 ([place] 10/325mg (03/22/25 22:15) Hydrocodone/Apap 10/325 ([place] 10/325mg (03/22/25 22:15) Hydrocodone/Apap 10/325 ([place] 10/325mg (03/22/25 22:35) Medications Received in ER Medications (Trade) Dose Ordered Sig/[place] Route PRN Reason Start Time Stop Time Status Last Admin Dose Admin (oxyCONTIN ext. release 15mg Tablet) 15 mg ONCE STAT PO 03/22/25 19:37 03/22/25 19:40 DC 03/22/25 20:01 15 MG ([place] 10/325mg tab) 1 tab ONCE ONCE PO 03/22/25 22:15 03/22/25 22:41 DC 03/22/25 22:43 1 TAB Vital Signs 03/22/25 03/22/25 17:54 22:14 Temp 97.9 97.9 Pulse 85 Resp 18 B/P (MAP) 155/89 Pulse Ox 98 Medical Decision Making Additional info obtained from: old records Findings This 49-year-old female presented with left foot pain following a recent hospitalization. Extensive review of previous hospitalization records conducted. On re-evaluation patient reports significant improvement in pain after medication, patient reports she does have follow up with the primary care provider in the next few days, plan will be short course of Butte outpatient until she can see her primary care, no clear origin of pain as foot is neurovascularly intact and there was no evidence of fracture or dislocation on x-ray from previous hospitalization and no new injury since discharge along with pain being present during her recent hospitalization when x-ray was obtained. Patient is otherwise at her baseline and appropriate for outpatient follow up. I have discussed with the patient the risks of addiction and overdose associated with use of opioids, including the increased risk of addiction to an opioid for an individual who is suffering from both mental and substance abuse disorders. I have discussed with the patient the danger of taking an opioid with a benzodiazepine, alcohol, or another central nervous system depressant. Cures report run and checked prior to narcotic prescribing. General Diff Dx:Considerations: Include: Abrasion, Contusion, Fracture, Hematoma, Malunion, Neurovascular injury, Open fracture, Sprain, Ulcer, Other (P eripheral vascular disease, arterial occlusion, DVT, cellulitis, abscess) Knee Diff Dx:Considerations: Include: Gout Departure Disposition: HOME / SELF CARE / HOMELESS Impression: Primary Impression: Foot pain Qualified Codes: M79.672 - Pain in left foot Condition: Improved Discharge Instructions: Foot Pain, RICE Therapy for Routine Care of Injuries, [id number] Additional Instructions: There was no clear cause of your foot pain, please see your primary care provider for further evaluation. Please see the attached home care instructions about rest, ice, compression, and elevation to help treat your foot pain. Please follow up with your primary care provider in the next few days. Please return to the emergency department for any new or worsening concerning symptoms. You may use neji-[id number] ibuprofen and or Tylenol as needed for pain as directed by the [id number] packaging. For breakthrough pain you may use the prescribed [place], be aware that the [place] also contains the same active ingredient as Tylenol, so do not take more than the recommended amount of Tylenol as directed on the [id number]-[id number] packaging. You have been prescribed an opioid medication, there are risks of addiction and overdose associated with the use of opioids. The risk of addiction to an opioid for increases for those suffering both from mental health and substance use disorders. The use of an opioid while taking other central nervous system depressants including but not limited to benzodiazepines or alcohol, or other opioids increases the risk of serious side effects that can include overdose or respiratory depression that can lead to serious injury or . Referrals: NO PRIMARY CARE PROVIDER (PCP) Prescriptions Hydrocodone Bit/Acetaminophen 5/325 MG ([place] 5/325 MG) 5 Mg/325 Mg Tablet 1 TAB PO Q6H PRN for pain, #12 TAB Prov: TERRANCE DONIS 03/22/25 Education Educated: Patient Educated regarding: diagnosis, treatment, prognosis, need for follow up Signature Scribe Signature: No scribe Attestation: The note accurately reflects work and decisions made by me.AMEYA Tellez 03/23/25 02:03 TERRANCE DONIS Mar 22, 2025 21:37
[2025-03-22] MEDS ORDERED: HYDR-3965 PO (21:45)
[2025-03-22 22:14] VITALS: TEMP 97.9
[2025-03-22] MEDS ORDERED: HYDROcodone/acetaminophen 10/325mg tab PO ONE (22:15)
[2025-03-22] MEDS: HYDROcodone/acetaminophen 10/325mg tab PO ONE ×2 (22:43)
== END 2025-03-22 22:52 | disposition home or self-care (01) ==
LOC: ER 17:48
DX: M79.672 Pain in left foot (principal); R60.0 Localized edema; E03.9 Hypothyroidism, unspecified; I25.10 Atherosclerotic heart disease of native coronary artery without angina pectoris; I11.0 Hypertensive heart disease with heart failure; I50.9 Heart failure, unspecified; F41.9 Anxiety disorder, unspecified; F32.A Depression, unspecified; F15.90 Other stimulant use, unspecified, uncomplicated; Z86.73 Personal history of transient ischemic attack (TIA), and cerebral infarction without residual deficits; Z88.0 Allergy status to penicillin; Z88.5 Allergy status to narcotic agent; Z79.899 Other long term (current) drug therapy; Z60.2 Problems related to living alone
CPT/HCPCS: 99283

== ENCOUNTER 2025-03-31 03:40 | Emergency (ER) | payer MEDICAID ==
[~2025-03-31] VITALS: Ht 177.8 cm; Wt 152.0 kg
[~2025-03-31 03:40] MED LIST changes: -CIPR-259 PO; -FURO40TA4 PO; +HYDR-3965 PO; -LEVO175T38 PO; -NIRM1TAB PO
--- NOTE | 2025-03-31 04:11 | Physician Documentation ---
History of Present Illness ~ Chief Complaint: Leg Pain Stated Complaint: LEG PAIN Time Seen by MD: 04:07 Primary Medical Doctor: Dr. Henning Mode of Arrival: POV HPI Patient presents to the emergency room with pain redness and swelling to her left lower extremity. Significant increase over the past day. She has concern for possible clots. No fevers. History of CHF Tetanus witin 5 years: Yes Medication Reconciliation Allergies: Coded Allergies: Penicillins (Verified Allergy, Intermediate, RASH, N/V, 03/31/25) >5 years, rash, treatment required, PEN-FAST 2 codeine (Verified Allergy, Intermediate, RASH, N/V, 03/31/25) Scheduled Atorvastatin Calcium (Atorvastatin Calcium), 40 MG PO DAILY Cefuroxime Axetil (Cefuroxime), 1 TAB PO Q12H Furosemide* (Lasix*), 2 TAB PO BID, (Reported) Levothyroxine Sodium* (Synthroid*), 300 MCG PO DAILY, (Reported) Potassium Chloride (Klor-Con), 1 TAB PO DAILY, (Reported) Scheduled PRN Albuterol Sulfate (Proair Hfa), 2 PUFFS IH BID PRN for SOB or wheezing, (Reported) Hydrocodone Bit/Acetaminophen 5/325 MG ([place] 5/325 MG), 1 TAB PO Q6H PRN for p ain Discontinued Medications Ciprofloxacin HCl (Cipro), 1 TAB PO Q12H Discontinued Reason: Auto Discontinued Past Medical History Past Medical History: CVA/TIA/Stroke, Seizures, Coronary Artery Disease, Congestive Heart Failure, Hypertension, Hypothyroidism, Anxiety, Depression Past Surgical History: , orthopedic surgeries, other Patient History: FH: diabetes mellitus FH: hypertension FH: stroke Other Past Family History: Mom had stroke, hypertension, and diabetes Alcohol Use: None Drug Use: methamphetamine Lives with: Alone Lives In: Home Occupation: student Review of Systems ROS All review of systems negative except as per HPI Physical Exam Vital Signs: Temperature: 96.8, Source: Temporal, Heart Rate: 84, Respiratory Rate: 20, BP: 144/93, Pulse Oximetry: 97, Weight: 152.000 Physical Exam General: Patient is awake, alert, oriented x4 in no acute distress Head: Normocephalic and atraumatic. Eyes: Conjunctival normal. EOMI. PERRL. ENT: Mucous membranes moist. Neck: Supple, trachea is midline. Chest: Clear to auscultation bilaterally without rales, rhonchi, or wheezes. There is no accessory muscle use or retractions. Cardiac: RRR without murmurs, gallops, or rubs. Abd: Soft, nondistended, nontender, with normoactive bowel sounds. No guarding, rebound, or rigidity. Extremities: Significant swelling and erythema with increased temperature to palpation to left lower extremity. Right lower extremity not as swollen or red Progress Results/Orders Results/Orders Completed Orders - MAITE VAZQUEZ MD Ceftriaxone 2gm/D5w 50ml Bag (Rocephin 2 (03/31/25 06:50) Vital Signs 03/31/25 03/31/25 03/31/25 03/31/25 03:53 04:00 04:45 07:11 Temp 96.8 97.8 97.8 Pulse 84 86 83 Resp 17 20 16 18 B/P (MAP) 144/93 127/71 (89) 148/90 (109) Pulse Ox 97 96 98 03/31/25 03/31/25 03/31/25 03/31/25 08:11 10:11 12:09 14:01 Temp 97.8 97.8 Pulse 78 79 77 72 Resp 20 16 16 14 B/P (MAP) 124/77 (93) 133/85 (101) 146/92 (110) 132/85 (101) Pulse Ox 96 98 97 98 O2 Flow Rate 2.0 2.0 03/31/25 14:49 Pulse 78 Resp 18 B/P (MAP) 132/85 Pulse Ox 100 Laboratory Tests Test 03/31/25 04:35 White Blood Count 9.8 Red Blood Count 3.41 L Hemoglobin 11.5 L Hematocrit 34.2 L Mean Corpuscular Volume 100.3 H Mean Corpuscular Hemoglobin 33.8 H Mean Corpuscular Hemoglobin Concent 33.7 Red Cell Distribution Width 14.9 H Platelet Count 205 Mean Platelet Volume 9.1 Neutrophils (%) (Auto) 68.3 Lymphocytes (%) (Auto) 19.4 L Monocytes (%) (Auto) 8.6 Eosinophils (%) (Auto) 3.1 Basophils (%) (Auto) 0.6 Neutrophils # (Auto) 6.7 Lymphocytes # (Auto) 1.9 Monocytes # (Auto) 0.8 Eosinophils # (Auto) 0.3 Basophils # (Auto) 0.1 CBC Comment D-Dimer 0.81 H D-Dimer Comment Sodium Level 140 Potassium Level 3.7 Chloride Level 103 Carbon Dioxide Level 27.7 Anion Gap 9 Blood Urea Nitrogen 19 H Creatinine 1.53 H Estimated GFR/1.73 m2 36 BUN/Creatinine Ratio 12.4 Glucose Level 96 Lactic Acid Level 1.3 Calcium Level 9.1 Magnesium Level 2.1 Pro-B-Type Natriuretic Peptide 35 Albumin 4.1 Procalcitonin < 0.05 Chemistry Comments Microbiology Date/Time Source Procedure Growth Status 03/31/25 08:41 Blood Arm Left Blood Culture - Preliminary NEGATIVE (LESS THAN 24 HOURS) Resulted EKG/XRAY/CT/US/VASC/MRI EKG : Additional Comment EKG interpreted by myself shows time of 0403, rate 87, sinus rhythm, normal axis, no ST changes Medical Decision Making Findings DURING THE PHYSICAL EXAMINATION, THE FINDINGS SUGGESTIVE OF ACUTE LIFE- THREATENING CONDITION SUCH JVD, TRACHEAL DEVIATION, ACIDOTIC BREATHING, NOISY STRIDOROUS BREATH SOUNDS, PULSES PARADOXUS, MUFFLED HEART SOUNDS, UNEQUAL BREATH SOUNDS, ABDOMINAL RIGIDITY AND REBOUND TENDERNESS, FOCAL NEUROLOGICAL DEFICITS, COOL CLAMMY SKIN, SEVERE HYPOTENSION, SEVERE TACHYCARDIA OR BRADYCARDIA ARE ABSENT. Patient is a 49-year-old female with obesity and Pickwickian syndrome on home oxygen and I evaluated all her labs and imaging as well as physical examination. Patient does not have deep vein thrombosis. She has probably cellulitis and she was given Rocephin 2 g IV piggyback. Wells and PERC applied and is low risk. She did very well upon road test. She will be given cefuroxime 500 mg p.o. b.i.d. and discharged from the emergency room with aftercare instructions. DISCLAIMER Inadvertent spelling and grammatical errors,inadvertent digester operator errors,syntax errors, grammatical errors, and spelling errors are likely due to EMR/dictation software use and do not reflect on the overall quality of patient care. Note that the electronic time recorded on this note does not necessarily reflect the actual time of the patient encounter. Departure Disposition: HOME / SELF CARE / HOMELESS Impression: Primary Impression: Cellulitis and abscess of left lower extremity Condition: Stable Discharge Instructions: Cellulitis, Adult Additional Instructions: Thank you for coming to our Emergency Department today. Please take medication as instructed and keep moving as much as you can and also hydrate yourself well. Please ask your nurse or provider if you have questions about your care today and do not leave until all your questions have been answered. Please use any medications given as directed and follow-up with your doctor (or the doctor you were referred to) in the next 1-3 days. Your primary care doctor can help to coordinate outpatient specialty care and provide authorization for specialty referral as needed. If you do not have a primary care doctor you may follow up at a [facility] - [place], [place]. You may also use motrin and tylenol as needed for fever and/or pain unless instructed otherwise by your provider or nurse. Indications for more urgent follow-up have been discussed, but you may return to the Emergency Department at ANY time for any worrisome or worsening symptoms. Referrals: NO PRIMARY CARE PROVIDER (PCP) Prescriptions Cefuroxime Axetil (Cefuroxime) 500 Mg Tablet 1 TAB PO Q12H for 10 Days, #20 TAB 0 Refills Prov: MAITE VAZQUEZ MD 03/31/25 Signature Scribe Signature: None Attestation: The note accurately reflects work and decisions made by me.Andrew Carolina MD 04/01/25 05:12 My dictation ANDREW CAROLINA MD Mar 31, 2025 04:11 MAITE VAZQUEZ MD Mar 31, 2025 14:32
[2025-03-31 04:46] LABS: BASOPHILS # (AUTO) 0.1 X10'3 (0-0.2); BASOPHILS % (AUTO) 0.6 % (0-1); EOSINOPHILS # (AUTO) 0.3 X10'3 (0-0.9); EOSINOPHILS % (AUTO) 3.1 % (0-6); HEMATOCRIT 34.2 % (35.0-45.0); HEMOGLOBIN 11.5 g/dl (12.0-16.0); LYMPHOCYTES # (AUTO) 1.9 X10'3 (1.1-4.8); LYMPHOCYTES % (AUTO) 19.4 % (21-51); MEAN CORPUSCULAR HEMOGLOBIN 33.8 PG (27.0-31.0); MEAN CORPUSCULAR HGB CONC 33.7 g/dL (33.0-36.5); MEAN CORPUSCULAR VOLUME 100.3 FL (78-98); MEAN PLATELET VOLUME 9.1 FL (7.4-10.4); MONOCYTES # (AUTO) 0.8 X10'3 (0-0.9); MONOCYTES % (AUTO) 8.6 % (2-12); NEUTROPHILS # (AUTO) 6.7 X10'3 (1.8-7.7); NEUTROPHILS % (AUTO) 68.3 % (42-75); PLATELET COUNT 205 X10'3 (140-440); RED BLOOD COUNT 3.41 X10'6 (4.20-5.60); RED CELL DISTRIBUTION WIDTH 14.9 % (11.5-14.5); WHITE BLOOD COUNT 9.8 X10'3 (4.5-11.0)
[2025-03-31] MEDS: acetaminophen 1,000mg/100ml IV 100 ML IV ONE (04:47)
[2025-03-31] MEDS: fentaNYL/PF 50MCG/1 ML 2ML syringe IV ONE (04:47)
[2025-03-31] MEDS: ondansetron/PF 4mg/2ml inj IV ONE (04:47)
--- NOTE | 2025-03-31 05:03 | RADIOLOGY REPORT ---
CHEST RADIOGRAPH Indication: SEPSIS Technique: Single frontal view of the chest was obtained COMPARISON: DI CHEST,SINGLE VIEW on DOS: 03/18/25, DI CHEST,SINGLE VIEW on DOS: 08/11/23, CHEST,SINGLE VIEW on DOS: 10/17/22, CHEST,SINGLE VIEW on DOS: 03/18/21, CHEST,SINGLE VIEW on DOS: 11/10/20 FINDINGS: Lines and Tubes: None Lungs: Increased interstitial prominence Pleura: No effusion. No pneumothorax. Cardiomediastinal contours: Unremarkable Bones: Unremarkable IMPRESSION: Viral pneumonia or pulmonary vascular congestion
[2025-03-31 05:11] LABS: ALBUMIN 4.1 G/DL (3.4-5.0); ANION GAP 9 (8-16); BLOOD UREA NITROGEN 19 MG/DL (7-18); BUN/CREATININE RATIO 12.4 (10.0-20.0); CALCIUM 9.1 MG/DL (8.5-10.1); CHLORIDE 103 MMOL/L (99-107); CREATININE 1.53 MG/DL (0.40-0.90); GLUCOSE 96 MG/DL (70-104); MAGNESIUM 2.1 MG/DL (1.5-2.4); POTASSIUM 3.7 MMOL/L (3.5-5.1); PRO BRAIN NATRIURETIC PEPTIDE 35 PG/ML (0-125); SODIUM 140 MMOL/L (135-145); TOTAL CARBON DIOXIDE 27.7 MMOL/L (24-32); eCRCL 48 ML/MIN; eGFR 36 ML/MIN
[2025-03-31 05:53] LABS: D-DIMER 0.81 MG/L FEU (0-0.50)
--- NOTE | 2025-03-31 06:13 | ELECTROCARDIOGRAPH REPORT ---
[facility] Test Date: 2025-03-31 Test Time: 04:03:18 Pat Name: HUBER PERERA Department: EMERGENCY ROOM [id number] Room: Gender: F Underwriter Solicitation Director: : 1975 Requested By: ANDREW VICENTE Order Number: [id number] Reading MD: Dr. Edilberto Clements Measurements Intervals Isabella Rate: 87 P: 48 VT: 157 QRS: 27 QRSD: 92 T: 28 QT: 377 QTc: 454 Interpretive Statements Sinus rhythm Low voltage, precordial leads Baseline wander in lead(s) V1 Electronically Signed On 04-01-2025 18:24:[address] Edilberto Clements Please click the below link to view image of tracing.
--- NOTE | 2025-03-31 06:58 | VASCULAR REPORT ---
EXAM: US Duplex Left Lower Extremity Veins CLINICAL INDICATION: Reason TECHNIQUE: Real-time duplex ultrasound scan of the left lower extremity veins integrating B-mode two -dimensional vascular structure, Doppler spectral analysis, color flow Doppler imaging and compressio n. COMPARISON: No relevant prior studies available. FINDINGS: DEEP VEINS: Unremarkable. No DVT in the visualized common femoral, femoral, proximal deep femoral or popliteal veins. The veins demonstrate normal color flow, are normally compressible, with normal phasic flow and/or augmentation response. SUPERFICIAL VEINS: Unremarkable. No thrombus in the visualized great saphenous vein. SOFT TISSUES: No acute findings. No popliteal cyst. OTHER FINDINGS: Comparison VASC VL VENOUS on DOS: 03/19/25. IMPRESSION: No DVT. HS:Y
[2025-03-31] MEDS: CefTRIAXone 2gm/D5W 50ml BAG 50 ML IV ONE (07:10)
[2025-03-31 10:11] VITALS: TEMP 97.8
[2025-03-31] MEDS ORDERED: CEFU500T66 PO (14:32)
[2025-03-31 14:49] VITALS: BP 132/85; PULSE 78; RESP 18; O2SAT 100
== END 2025-03-31 15:00 | disposition home or self-care (01) ==
LOC: ER 03:41
DX: L03.116 Cellulitis of left lower limb (principal); L02.416 Cutaneous abscess of left lower limb; I11.0 Hypertensive heart disease with heart failure; I50.9 Heart failure, unspecified; F41.9 Anxiety disorder, unspecified; I25.10 Atherosclerotic heart disease of native coronary artery without angina pectoris; E03.9 Hypothyroidism, unspecified; F15.90 Other stimulant use, unspecified, uncomplicated; Z86.73 Personal history of transient ischemic attack (TIA), and cerebral infarction without residual deficits; Z88.0 Allergy status to penicillin; Z88.5 Allergy status to narcotic agent; Z79.899 Other long term (current) drug therapy; Z60.2 Problems related to living alone
CPT/HCPCS: 36415; 71045; 80048; 83605; 83735; 83880; 84145; 85025; 85379; 87040; 87077; 87186; 93005; 93971; 96365; 96367; 96375; 99285; J0131; J0696; J2405; J3010

== ENCOUNTER 2025-08-15 06:09 | Emergency (ER) | payer MEDICAID ==
[~2025-08-15] VITALS: Ht 177.8 cm; Wt 168.0 kg
[~2025-08-15 06:09] MED LIST changes: +CEFU500T66 PO; -HYDR-3965 PO
[2025-08-15 07:47] VITALS: TEMP 97.5
[2025-08-15 09:55] LABS: MEAN PLATELET VOLUME 8.8 FL (7.4-10.4); RED CELL DISTRIBUTION WIDTH 17.5 % (11.5-14.5)
[2025-08-15 10:14] LABS: CREATININE 1.44 MG/DL (0.40-0.90); TOTAL CARBON DIOXIDE 31.4 MMOL/L (24-32); eCRCL 51 ML/MIN; eGFR 39 ML/MIN
--- NOTE | 2025-08-15 11:23 | Physician Documentation ---
History of Present Illness ~ Chief Complaint: Foot pain Stated Complaint: GOUT Time Seen by MD: 08:11 Primary Medical Doctor: Dr. Henning HPI 50 yof h/o CVA, seizures, CAD, CHF, HTN, hypothyroidism Meth use, opiate use p/w several months of left great toe pain. No fevers. Reports she was seen here and diagnosed with gout. Reviewed d/c summary in March 2025 at that time p/w left leg pain had u/s which was negative and XR non acute. Denies any fevers. Tetanus witin 5 years: Yes Medication Reconciliation Allergies: Coded Allergies: Penicillins (Verified Allergy, Intermediate, RASH, N/V, 08/15/25) >5 years, rash, treatment required, PEN-FAST 2 codeine (Verified Allergy, Intermediate, RASH, N/V, 08/15/25) Scheduled Atorvastatin Calcium (Atorvastatin Calcium), 40 MG PO DAILY Cefuroxime Axetil (Cefuroxime), 1 TAB PO Q12H Furosemide* (Lasix*), 2 TAB PO BID, (Reported) Levothyroxine Sodium* (Synthroid*), 300 MCG PO DAILY, (Reported) Potassium Chloride (Klor-Con), 1 TAB PO DAILY, (Reported) Scheduled PRN Albuterol Sulfate (Proair Hfa), 2 PUFFS IH BID PRN for SOB or wheezing, (Reported) Past Medical History Past Medical History: CVA/TIA/Stroke, Seizures, Coronary Artery Disease, Congestive Heart Failure, Hypertension, Hypothyroidism, Anxiety, Depression Past Surgical History: , orthopedic surgeries, other Patient History: FH: diabetes mellitus FH: hypertension FH: stroke Other Past Family History: Mom had stroke, hypertension, and diabetes Alcohol Use: None Drug Use: methamphetamine Lives with: Alone Lives In: Home Occupation: student Review of Systems All Other Systems at this time: Reviewed and Negative Cardiovascular: Denies: chest pain Gastrointestinal: Denies: abdomen distended, abdominal pain, nausea, vomiting Genitourinary: Denies: dysuria Neurological: Denies: headache, dizziness Integumentary: Denies: rash Physical Exam Vital Signs: Temperature: 97.5, Source: Temporal, Heart Rate: 82, Respiratory Rate: 18, BP: 143/101, Pulse Oximetry: 99, Weight: 168.000 Oxygen Flow Rate: 0 Physical Exam non toxic obese breathing comfortably a0x4 no deficit abdomen non tender lower ext 2+ pitting edema bilaterally left great toe swollen, warm tender at MCP. No cellulitis. Warm, intact DP pulse, slight purplish discoloration toe 1-3. Intact rom with pain. Intact cap refill. Intact sensation. Progress Progress Note ALESHA performed RUE 105, LUE 120mmHG RLE 120 mmHG, LLE 150mmHG. ALESHA 1.0 right 1.25 left. Results/Orders Reviewed/noted all lab results: Yes (uric acid elevated) Results/Orders Completed Orders - BRIAN BRAVO MD Cbc/Diff (08/15/25 08:45) BMP (08/15/25 08:45) Uric Acid (08/15/25 08:45) Vital Signs 08/15/25 08/15/25 06:19 07:47 Temp 97.0 97.5 Pulse 90 82 Resp 16 18 B/P (MAP) 159/94 143/101 (115) Pulse Ox 98 99 O2 Flow Rate 0 Laboratory Tests Test 08/15/25 09:40 White Blood Count 7.8 Red Blood Count 4.08 L Hemoglobin 12.6 Hematocrit 38.5 Mean Corpuscular Volume 94.3 Mean Corpuscular Hemoglobin 30.9 Mean Corpuscular Hemoglobin Concent 32.8 L Red Cell Distribution Width 17.5 H Platelet Count 188 Mean Platelet Volume 8.8 Neutrophils (%) (Auto) 63.2 Lymphocytes (%) (Auto) 24.7 Monocytes (%) (Auto) 6.8 Eosinophils (%) (Auto) 4.5 Basophils (%) (Auto) 0.8 Neutrophils # (Auto) 4.9 Lymphocytes # (Auto) 1.9 Monocytes # (Auto) 0.5 Eosinophils # (Auto) 0.3 Basophils # (Auto) 0.1 CBC Comment Sodium Level 140 Potassium Level 3.9 Chloride Level 103 Carbon Dioxide Level 31.4 Anion Gap 6 L Blood Urea Nitrogen 19 H Creatinine 1.44 H Estimated GFR/1.73 m2 39 BUN/Creatinine Ratio 13.2 Glucose Level 96 Uric Acid 7.3 H Calcium Level 9.2 Albumin 4.1 Chemistry Comments Medical Decision Making Additional information obtaine: old records Findings 50 yof p/w several months left foot pain. She has h/o polysubstance use, chf and cad. Her toes are slightly discolored and purplish but intact pulse and sensation. ALESHA wnl. Uric acid elevated. Suspect the typical podagra is altered in visual appearance (less red and involving 2nd and third toe) due to signficant pedal edema and venous stasis. She needs to keep her legs elevated. General Diff Dx:Considerations: Include: Abrasion, Contusion, Fracture Knee Diff Dx:Considerations: Include: Abrasion, Arthritis, Other Ankle Diff Dx:Considerations: Include: Other Foot Diff Dx:Considerations: Include: Other Toe Diff Dx:Considerations: Include: Other Departure Disposition: HOME / SELF CARE / HOMELESS Impression: Primary Impression: Gout Qualified Codes: M1A.9XX0 - Chronic gout, unspecified, without tophus (tophi) Additional Instructions: Please keep your foot elevated at all times when not walking. Also you may find compression stockings very helpful. Return if you develop fever. Follow up with your PCP. Referrals: NO PRIMARY CARE PROVIDER (PCP) Prescriptions Prednisone (Prednisone) 10 Mg Tablet 0 PO DAILY, #105 TABLET Take 6 tabs/day x5 days then 5 daily x5 days 4 daily x5 days 3 daily x5 days 2 daily x5 days 1 daily x5 days then stop. Prov: BRIAN BRAVO MD 08/15/25 Signature Scribe Signature: na Attestation: BRIAN Patel MD Aug 15, 2025 11:23
[2025-08-15] MEDS ORDERED: PRED10TA23 PO (11:34)
[2025-08-15 11:59] VITALS: BP 145/87; PULSE 87; RESP 16; O2SAT 98
== END 2025-08-15 12:01 | disposition home or self-care (01) ==
LOC: ER 06:10
DX: M10.9 Gout, unspecified (principal); I25.10 Atherosclerotic heart disease of native coronary artery without angina pectoris; E03.9 Hypothyroidism, unspecified; I11.0 Hypertensive heart disease with heart failure; I50.9 Heart failure, unspecified; F15.90 Other stimulant use, unspecified, uncomplicated; F41.9 Anxiety disorder, unspecified; F32.A Depression, unspecified; Z86.73 Personal history of transient ischemic attack (TIA), and cerebral infarction without residual deficits; Z88.0 Allergy status to penicillin; Z88.5 Allergy status to narcotic agent; Z79.899 Other long term (current) drug therapy; Z98.890 Other specified postprocedural states; Z60.2 Problems related to living alone
CPT/HCPCS: 36415; 80048; 84550; 85025; 99283

== ENCOUNTER 2025-08-31 20:41 | Inpatient (IN) | payer MEDICAID ==
[~2025-08-31] VITALS: Ht 177.8 cm; Wt 136.0 kg
[~2025-08-31 20:41] MED LIST changes: +PRED10TA23 PO
[2025-08-31 21:39] LABS: MEAN PLATELET VOLUME 9.4 FL (7.4-10.4); RED CELL DISTRIBUTION WIDTH 16.9 % (11.5-14.5)
[2025-08-31 21:56] LABS: CREATININE 1.41 MG/DL (0.40-0.90); TOTAL CARBON DIOXIDE 30.1 MMOL/L (24-32); eCRCL 52 ML/MIN; eGFR 39 ML/MIN
[2025-08-31] MEDS ORDERED: PRED10TA (23:01)
--- NOTE | 2025-08-31 23:19 | Physician Documentation ---
History of Present Illness ~ Chief Complaint: Leg Pain Stated Complaint: MULTIPLE MEDICAL ISSUES Time Seen by MD: 23:38 OK to notify your PCP?: Yes Primary Medical Doctor: Dr. Henning Source: patient, RN/MD, RN notes reviewed, old records Mode of Arrival: POV, Wheelchair Exam Limitations: no limitations HPI 50-year-old female morbidly obese presents to the emergency department with acute swelling and redness of the right lower extremity. He has chronic history of lower leg cellulitis and vascular insufficiency. Denies any changes in her normal shortness a breath. There has been no palpitations. Right lower extremity is extremely edematous painful and hyperpigmented. I spoke to the patient who states that she has had history of cellulitis on the left side in the past has chronic recurrent but the redness to the right leg is brand new it is painful her foot hot she feels chilled. The redness became quite severe with the edema approximately two days ago. She does have a history of heart failure kidney failure as well as kidney abnormalities she has been compliant with her medications which includes thyroid medications Lasix and potassium. Other than some fevers and chills she states it is very painful which is unusual it is sharp stabbing severe pain. She is now here for evaluation and care. She is on home oxygen which is not new. And there has been no change in her oxygen needs. Tetanus witin 5 years: No Medication Reconciliation Allergies: Coded Allergies: Penicillins (Verified Allergy, Intermediate, RASH, N/V, 08/15/25) >5 years, rash, treatment required, PEN-FAST 2 codeine (Verified Allergy, Intermediate, RASH, N/V, 08/15/25) Scheduled Atorvastatin Calcium (Atorvastatin Calcium), 40 MG PO DAILY Furosemide* (Lasix*), 2 TAB PO BID, (Reported) Levothyroxine Sodium* (Synthroid*), 300 MCG PO DAILY, (Reported) Potassium Chloride (Klor-Con), 1 TAB PO DAILY, (Reported) Scheduled PRN Albuterol Sulfate (Proair Hfa), 2 PUFFS IH BID PRN for SOB or wheezing, (Reported) Miscellaneous Medications Prednisone (Prednisone), (Reported) Discontinued Medications Cefuroxime Axetil (Cefuroxime), 1 TAB PO Q12H Discontinued Reason: completed med therapy Prednisone (Prednisone), 0 PO DAILY Discontinued Reason: completed med therapy Past Medical History Past Medical History: CVA/TIA/Stroke, Seizures, Coronary Artery Disease, Congestive Heart Failure, Hypertension, Hypothyroidism, Anxiety, Depression Past Surgical History: , orthopedic surgeries, other Patient History: FH: diabetes mellitus FH: hypertension FH: stroke Other Past Family History: Mom had stroke, hypertension, and diabetes Alcohol Use: None Drug Use: methamphetamine Lives with: Alone Lives In: Home Occupation: student Review of Systems All Other Systems at this time: Reviewed and Negative Physical Exam Vital Signs: RN Vital Signs have been reviewed: Yes, Temperature: 98.7, Source: Temporal, Heart Rate: 93, Respiratory Rate: 22, BP: 144/75, Pulse Oximetry: 96, Weight: 136.000 Oxygen Flow Rate: 0 Physical Exam General: The patient is well developed, well nourished, nontoxic appearing and is in mild acute distress. Anxious, morbidly obese on oxygen Skin: Effie, warm and dry with no rashes. HEENT: Head was normocephalic and atraumatic. Eyes - pupils equal, round, reac tive to light and accommodation. Extraocular movements were intact. Conjunctivae were nonicteric. The mouth and oropharynx were clear with moist mucous membranes. There were no pharyngeal exudates or erythema. Neck: Supple and nontender. There was no jugular venous distention, lymphadenopathy, thyromegaly or masses. Chest: Clear to auscultation bilaterally without wheezes, rales or rhonchi. No accessory muscle use. No dullness to percussion. Heart: Rate regular and rhythmic. S1, S2. No murmurs. Palpation of the chest wall was normal. No rubs or thrills. Abdomen: Soft, nontender and nondistended. Positive bowel sounds. No guarding or rebound. No hepatosplenomegaly or palpable masses. Extremities: No cyanosis, clubbing 2+ bilateral pitting edema. The patient moves all extremities. Pulses were equal and symmetric. Bilateral erythema of the shins [id number] above the ankle. Right lower extremity however his bright red warm and tender to touch Neurologic: Motor sensory grossly intact Psychologic: The patient was oriented to person, place and time. The patient demonstrated appropriate judgement and insight. Progress Progress Note Patient presented to the hospitalist who kindly agreed to admit the patient for further workup and care Results/Orders Reviewed/noted all lab results: Yes Results/Orders Orders - EDILBERTO CLEMENTS MD Stat Ekg (08/31/25 20:55) Page Hospitalist (08/31/25 23:44) Fill Out Med Reconciliation (08/31/25 23:44) Culture Blood (08/31/25 23:47) Vancomycin/Ns 1 Gm Add-[place] (Vancomyc (08/31/25 23:50) Lacticsepsis (08/31/25 23:47) Drug Screen, Urine (08/31/25 23:57) Completed Orders - EDILBERTO CLEMENTS MD Cbc/Diff (08/31/25 20:55) CMP (08/31/25 20:55) LA (08/31/25 20:55) Procalcitonin (08/31/25 23:47) Ceftriaxone 2gm/D5w 50ml Bag (Rocephin 2 (08/31/25 23:50) Hs Troponin I W Calculations (08/31/25 23:47) Hydromorphone 1 Mg/Ml/Pf (Dilaudid Inj.) (08/31/25 23:55) PBNP (08/31/25 21:17) Medications Received in ER Medications (Trade) Dose Ordered Sig/[place] Route PRN Reason Start Time Stop Time Status Last Admin Dose Admin (Ultram tablet) 50 mg ONCE ONCE PO 08/31/25 23:20 08/31/25 23:24 DC 08/31/25 23:36 50 MG (VIBRAMYCIN 100mg capsule) 100 mg ONCE STAT PO 08/31/25 23:17 08/31/25 23:22 DC 08/31/25 23:35 100 MG Vital Signs 08/31/25 08/31/25 08/31/25 20:53 22:00 23:36 Temp 98.7 Pulse 93 Resp 20 22 16 B/P (MAP) 144/75 Pulse Ox 96 O2 Flow Rate 0 Laboratory Tests Test 08/31/25 21:17 White Blood Count 9.3 Red Blood Count 3.87 L Hemoglobin 12.3 Hematocrit 36.1 Mean Corpuscular Volume 93.3 Mean Corpuscular Hemoglobin 31.8 H Mean Corpuscular Hemoglobin Concent 34.1 Red Cell Distribution Width 16.9 H Platelet Count 188 Mean Platelet Volume 9.4 Neutrophils (%) (Auto) 69.2 Lymphocytes (%) (Auto) 18.7 L Monocytes (%) (Auto) 6.3 Eosinophils (%) (Auto) 5.2 Basophils (%) (Auto) 0.6 Neutrophils # (Auto) 6.4 Lymphocytes # (Auto) 1.7 Monocytes # (Auto) 0.6 Eosinophils # (Auto) 0.5 Basophils # (Auto) 0.1 CBC Comment Sodium Level 143 Potassium Level 3.6 Chloride Level 104 Carbon Dioxide Level 30.1 Anion Gap 9 Blood Urea Nitrogen 15 Creatinine 1.41 H Estimated GFR/1.73 m2 39 BUN/Creatinine Ratio 10.6 Glucose Level 130 H Lactic Acid Level 1.3 Calcium Level 8.5 Total Bilirubin 0.7 Aspartate Amino Transf (AST/SGOT) 21 Alanine Aminotransferase (ALT/SGPT) 23 Alkaline Phosphatase 112 Troponin I High Sensitivity 15 Pro-B-Type Natriuretic Peptide 90 Total Protein 7.9 Albumin 3.6 Globulin 4.3 Albumin/Globulin Ratio 0.8 L Procalcitonin < 0.05 Chemistry Comments Re-Evaluation Re-Evaluation : Re-Evaluation: Unchanged Progress Patient has a history of cellulitis. She is morbidly obese with vascular disease and venous insufficiency. Patient's laboratory work was obtained. Her white count is 9.3 no anemia no left shift. Patient's lactic acid is 1.3. BUN is 15 creatinine is 1.41. Additional laboratory work was obtained such as procalcitonin for possible sepsis and blood cultures obtained. Patient then received vancomycin. Initially patient received doxycycline. Patient also was in severe pain received one of Dilaudid. After the initial workup patient will be admitted to the hospitalist service for further treatment for the cellulitis. Continuous youth nutritional monitor interpretation shows normal sinus rhythm heart rate 90s, no ectopy, normal, my interpretation. Pulse oximetry monitor interpretation shows normal oxygenation at 96% on 2 L oxygen, normal for this patient, my interpretation. EKG/XRAY/CT/US/VASC/MRI EKG : Intepreting Monitor?: Yes Additional Comment Time 8:47 p.m. EKG shows poor R-wave progression nonspecific ST depressions in two three AVF no ST elevation QTC 446 Vascular : Impression Right lower extremity venous duplex Clinical History: Right distal calf pain and erythema Comparison: VASC VL VENOUS on DOS: 03/31/25, VASC VL VENOUS on DOS: 03/19/25 Technique: Duplex Doppler evaluation of the deep venous system of the right lower extremity from the common femoral vein to the popliteal vein including color Doppler and spectral/pulsed waveform analysis was performed. Findings: The common femoral vein demonstrates appropriate compressibility and waveform variability. There is compressibility/patency of the great saphenous vein at the proximal thigh. The femoral vein demonstrates appropriate compressibility and waveform variability. The deep femoral vein demonstrates appropriate compressibility and waveform variability. The popliteal vein demonstrates appropriate compressibility and waveform variability. There is normal compressibility at the tibioperoneal trunk. Impression: 1. No right femoropopliteal venous thrombosis. 2. Contralateral common femoral vein is patent. Medical Decision Making Additional information obtaine: old records, N/A Findings Medical screening exam conducted in room 19. Patient requires laboratory screening along with DVT evaluation of the right lower extremity. She will receive Tramadol for pain and 1st dose Doxycycline while awaiting ultrasound imaging. General Diff Dx:Considerations: Include: Contusion, Hematoma, Other Knee Diff Dx:Considerations: Include: Other Ankle Diff Dx:Considerations: Include: Osteomyelitis, Septic, Other Foot Diff Dx:Considerations: Include: Septic Toe Diff Dx:Considerations: Include: Other Departure Disposition: 09 ADMITTED INPATIENT Admitted to Inpatient Unit: to hospitalist Admission Level of Care: Med/Surg with Tele Impression: Primary Impression: Cellulitis of leg without foot Additional Impressions: Chronic congestive heart failure Qualified Codes: I50.42 - Chronic combined systolic (congestive) and diastolic (congestive) heart failure Morbid obesity with BMI of 40.0-44.9, adult Condition: Fair Referrals: NO PRIMARY CARE PROVIDER (PCP) Education Educated: Patient Educated regarding: diagnosis, need for follow up, other Signature Scribe Signature: no Attestation: The note accurately reflects work and decisions made by me.Edilberto Clements MD 08/31/25 23:58 ZAC CARDOZO Aug 31, 2025 23:19 EDILBERTO CLEMENTS MD Aug 31, 2025 23:46
[2025-08-31] MEDS: DOXYCYCLINE 100MG CAPSULE PO STA (23:35)
[2025-08-31] MEDS: vancomycin/NS 1 GM ADD-VANTAGE 250 ML IV ONE (23:50)
[2025-09-01] VITALS (10 sets, daily range): BP systolic 115–137; BP diastolic 58–82; PULSE 67–89; RESP 15–22; TEMP 97.3–98.4; O2SAT 94–99
[2025-09-01 00:26] LABS: PRO BRAIN NATRIURETIC PEPTIDE 90 PG/ML (0-125)
--- NOTE | 2025-09-01 00:39 | VASCULAR REPORT ---
Right lower extremity venous duplex Clinical History: Right distal calf pain and erythema Comparison: VASC VL VENOUS on DOS: 03/31/25, VASC VL VENOUS on DOS: 03/19/25 Technique: Duplex Doppler evaluation of the deep venous system of the right lower extremity from the common femoral vein to the popliteal vein including color Doppler and spectral/pulsed waveform analysis was performed. Findings: The common femoral vein demonstrates appropriate compressibility and waveform variability. There is compressibility/patency of the great saphenous vein at the proximal thigh. The femoral vein demonstrates appropriate compressibility and waveform variability. The deep femoral vein demonstrates appropriate compressibility and waveform variability. The popliteal vein demonstrates appropriate compressibility and waveform variability. There is normal compressibility at the tibioperoneal trunk. Impression: 1. No right femoropopliteal venous thrombosis. 2. Contralateral common femoral vein is patent.
[2025-09-01] MEDS ORDERED: ondansetron/PF 4mg/2ml inj IV PRN (00:55)
[2025-09-01] MEDS ORDERED: mag hydrox/Alum hydrox/simeth 30ml oral suspension PO PRN (00:55)
[2025-09-01] MEDS ORDERED: magnesium hydroxide 30ml (MOM) UD suspension PO PRN (00:55)
[2025-09-01] MEDS ORDERED: magnesium Cl slow-release 64mg tablet PO PRN (00:55)
[2025-09-01] MEDS ORDERED: potassium Cl 40MEQ/1/2NS 520ml 520 ML IV PRN (00:55)
[2025-09-01] MEDS ORDERED: potassium Cl 20 mEq SR tablet PO PRN (00:55)
[2025-09-01] MEDS ORDERED: magnesium sulf-water 2g/50mL 50 ML IV PRN (00:55)
[2025-09-01] MEDS ORDERED: magnesium sulf-water 4G/100mL 100 ML IV PRN (00:55)
[2025-09-01] MEDS: CefTRIAXone 2gm/D5W 50ml BAG 50 ML IV ONE (01:18)
--- NOTE | 2025-09-01 03:08 | HISTORY AND PHYSICAL-Residence ---
History & Physical Providers to CC Resident Creating Document: BORIS DALY RES ~ History of Present Illness Primary Medical Doctor: Dr. Henning Reason for Admit\Complaint: Cellulitis History of Present Illness This is a 50-year-old obese female with past medical history of CHF, sleep apnea, hypothyroidism who presents to ER with with swelling and pain in her right lower extremity. Patient reports that two days ago swelling started gradually, right leg is erythematous, warm, tender pain is 10/10 in intensity, sharp, nonradiating patient can not even walk because of pain. Patient reports that she do not know how the swelling occured, denies any fall, any injury. She also reports she was feeling feverish Patient also reports in the past she had left leg cellulitis 4 years ago. Her left leg also swollen erythematous however it is not painful. In addition to that patient also reports chest pain which was sharp radiating to the left side of the neck and lasted only for few seconds, currently she denies chest pain. During that episode of chest pain she had no nausea, no vomiting and no sweating. Patient also reports that yesterday when she woke up in the morning she can not completely open her right eye. Apart from that she also had history of heart failure for which she uses 3 L of oxygen at home which is her baseline. Allergies: Coded Allergies: Penicillins (Verified Allergy, Intermediate, RASH, N/V, 08/15/25) >5 years, rash, treatment required, PEN-FAST 2 codeine (Verified Allergy, Intermediate, RASH, N/V, 08/15/25) Home Medications Home Medications Active Atorvastatin Calcium 20 Mg Tablet 40 Mg PO DAILY 30 Days Reported Prednisone (Prednisone) 10 Mg Tablet Synthroid* (Levothyroxine Sodium) 88 Mcg Tablet 300 Mcg PO DAILY 30 Days Lasix* (Furosemide) 20 Mg Tablet 2 Tab PO BID 30 Days Klor-Con (Potassium Chloride) 10 Meq Tab.prt.sr 1 Tab PO DAILY Proair Hfa (Albuterol Sulfate) 1 Puff Inh 2 Puffs IH BID PRN Past Medical History Past Medical History CHF Hypothyroidism TUAN Past Surgical History Surgical History Comment Left ankle surgery Family History Family History: FH: diabetes mellitus FH: hypertension FH: stroke Past Social History Social History Comment Denies smoking Denies alcohol Smokes meth quit about a year ago Lives in home with 2 dogs PCP is Dr bina perry at [facility] Alcohol Use: None ROS ROS All reviewed and negative except for pertinent positive findings mentioned in HPI Exam Vitals: Vital Signs Date Time Temp Pulse Resp B/P (MAP) Pulse Ox O2 Delivery O2 Flow Rate FiO2 09/01/25 02:22 80 18 128/78 (95) 95 4.0 08/31/25 20:53 98.7 General: General: awake, alert oriented to place, time, and person HEENT: No pallor present, no icterus, moist mucous membranes Ptosis of right eye, patient reports she cannot see properly from right eye. Neck: No masses and tenderness Resp: Unlabored. Lungs clear to auscultation bilaterally. Chest: Normal expansion. Cardiovascular: Regular Rate and rhythm, normal S1 and S2 without murmur, rub or gallop Abdomen: Soft and mildly tender in epigastrium, no organomegaly, no guarding and rigidity, bowel sounds present Neuro: No focal weakness in the upper and lower limb muscles, power of the muscles 5/5 bilateral upper, normal reflexes bilaterally. Cranial nerves intact Power of muscle right leg could not be assessed because of pain. Power of left leg limited because of pain in left thigh. Extremities: No cyanosis,clubbing or edema Skin: Warm and Dry. No lesions Psych: Normal affect Diagnostic Data Last Recorded Lab Results: 08/31/[id number] Advance Care Planning Advanced Care plannin - 30 Minutes (I spent 17 minutes in discussing various resuscitative measures with the patient and she chose to be full code.) Additional Plan This 50-year-old female presented past medical history of TUAN, CHF presented in ER with chief complaint of pain in right lower leg. Bilateral lower extremity cellulitis more towards right side Procal normal, Wbc normal. Legs are swollen erythematous Received Dilaudid for pain in ER Patient received vancomycin and ceftriaxone in ER Started patient on ceftriaxone 1 g and vancomycin pharmacy to dose Ultrasound of right lower extremity: No right femoropopliteal venous thrombosis Follow up with arterial ultrasound Partial Ptosis of right eye Patient reports yesterday when she woke up she had she could not open her right eye complete Patient has peripheral vision loss on right side of eye. Consult Neurology. CT head did not show any acute intracranial abnormality. Chronic Kidney disease Stage 3b Baseline 1.52 Creatinine 1.41 fOLLOW UP WITH URINE LYTES Consult nephrlogy. TUAN Patient reports that she was supposed to get CPAP but yet she has not started using CPAP CPAP at night Chronic heart failure Heart failure with preserved ejection not in acute excerbation ProBNP 90 Echo on 03/19/25:Overall LVEF is 60%. Patient reports she used oxygen 3 L at home for CHF. Continue furosemide home medication [address] Sharp Hypothyroidism TSH 50.89 Ordered IV synthyroid pharmacy to dose ordered. Follow up with [facility] Code status: Full code DVT prophylaxis: Heparin Dispostion: Continue monitoring patient, consult nephrology in morning Boris Daly PGY 1 IM Usama Addendum #1 Neuro: -Monitor for delirium #2 CV: The pt has evidence of CHF. -Lasix #3 Pulm: The pt has a history of TUAN. -If home CPAP, continue at night -Monitor closely for sedatives to reduce risk of obstruction and hypoxia. -Promote IS use -Keep o2 sat >92% #4 GI: -Advance diet when ok with primary #5 Renal: -Monitor for MONICA -Replete lytes #6 ID: Pt noted to have signs of acute lower extremity cellulitis. Demarcate edge to track progression -Continue ceftriaxone and vancomycin for gram positive coverage #7 Endo: -Maintain FS 150-180 The pt has uncontrolled hypothyroidism, TSH 50 mIU/L. -Repeat TSH and T4 -Continue synthroid; consider dose adjustment #8 Heme/Onc: -Monitor for bleeding and blood clots -Keep Hgb >7 and plt >10 #9 PPx: -Chemical DVT PPx with heparin I saw this patient and completed a full visual exam via audio-visual HIPAA compliant technology. Date of Service: Sep 01, 2025 Billing Provider: LISETTE NANCE MD, SANJAY, RES Sep 01, 2025 03:08 LISETTE NANCE MD Sep 01, 2025 08:09
--- NOTE | 2025-09-01 04:07 | RADIOLOGY REPORT ---
EXAM: CT CT HEAD INDICATION: ptosis STROKE ALERT L2 PER RES TECHNIQUE: CT of the head without intravenous contrast. Radiation Dose : 1. Head: CT Dose: CTDI volume is 65.59 mGy. Dose-length product is 1335.39 mGy*cm The dose indicators for CT are the volume Computed Tomography (CT) Dose Index (CTDIvol) and the Dose Length Product (DLP), and are measured in units of mGy and mGy-cm, respectively. These indicators are not patient dose, but values generated from the CT scanner acquisition factors. The report includes radiation exposure data for exposures received during this examination. COMPARISON: CT CT HEAD on DOS: 03/19/25 FINDINGS: There is no evidence of acute intracranial hemorrhage, extra-axial collection, mass effect, midline shift, herniation or hydrocephalus. The ventricles, sulci and cisterns are age appropriate. The dee-white differentiation is intact. Bilateral ethmoid and right frontal mucosal sinus disease. The remaining visualized paranasal sinuses and mastoid air cells are clear. The surrounding soft tissues and osseous structures are unremarkable. IMPRESSION: 1. No acute intracranial abnormality. Radiation optimization: All CT scans at this facility use at least one of these dose optimization techniques: automated exposure control mA and/or kV adjustment per patient size (includes targeted exams where dose is matched to clinical indication) or iterative reconstruction.
[2025-09-01] MEDS: vancomycin/NS 1 GM ADD-VANTAGE 250 ML IV ONE (05:00)
[2025-09-01] MEDS: furosemide 10 MG/1 ML 10ml inj IV ONE (05:47)
--- NOTE | 2025-09-01 06:23 | ELECTROCARDIOGRAPH REPORT ---
[facility] Test Date: 2025-08-31 Test Time: 20:47:38 Pat Name: HUBER PERERA Department: EMERGENCY ROOM Room: [address] Gender: F Literacy Tutor: MADHAV : 1975 Requested By: DONALD CLEMENTS Order Number: [id number] Reading MD: Dr. Donald Clements Measurements Intervals Keller Rate: 88 P: 56 IA: 157 QRS: 35 QRSD: 100 T: 62 QT: 368 QTc: 446 Interpretive Statements Sinus rhythm Low voltage, precordial leads Minimal ST depression, inferior leads Electronically Signed On 09-01-2025 6:44:[address] Donald Clements Please click the below link to view image of tracing.
[2025-09-01] MEDS: heparin, porcine 5000 units/ml vial SQ SCH (07:59)
[2025-09-01] MEDS: K and/or MAG REPLACEMENT MC SCH (08:00)
[2025-09-01] MEDS: vancomycin/NS 1 GM ADD-VANTAGE 250 ML IV SCH (08:00)
[2025-09-01] MEDS: docusate sod 100mg capsule PO SCH (08:00)
[2025-09-01] MEDS ORDERED: levoTHYROXINE 88mcg tablet PO SCH (08:00)
[2025-09-01 08:51] LABS: URINE AMPHETAMINE SCREEN POSITIVE (Neg); URINE BARBITUATE SCREEN NEGATIVE (Neg); URINE BENZODIAZEPINES SCREEN NEGATIVE (Neg); URINE CANNABINOID SCREEN NEGATIVE (Neg); URINE COCAINE SCREEN NEGATIVE (Neg); URINE METHADONE SCREEN NEGATIVE (Neg); URINE OPIATE SCREEN NEGATIVE (Neg); URINE PHENCYCLIDINE SCREEN NEGATIVE (Neg)
[2025-09-01 08:59] LABS: CREATININE,URINE RANDOM 52.0 MG/DL; UA UREA RANDOM 258.0 MG/DL
[2025-09-01] MEDS: LEVOTHYROXINE SODIUM 100 MCG/5 ML injection IV SCH (09:10)
[2025-09-01] MEDS ORDERED: HYDROcodone/acetaminophen 5mg/325mg tablet PO PRN (10:20)
[2025-09-01 10:42] LABS: MEAN PLATELET VOLUME 9.4 FL (7.4-10.4); RED CELL DISTRIBUTION WIDTH 17.1 % (11.5-14.5)
[2025-09-01 11:00] LABS: CREATININE 1.36 MG/DL (0.40-0.90); TOTAL CARBON DIOXIDE 31.2 MMOL/L (24-32); eCRCL 54 ML/MIN; eGFR 41 ML/MIN
[2025-09-01] MEDS: HYDROcodone/acetaminophen 10/325mg tab PO PRN (13:23)
--- NOTE | 2025-09-01 17:19 | VASCULAR REPORT ---
BILATERAL Lower Extremity Arterial Duplex Date: 09/01/2025 03:09 PM Clinical History: pain Comparison: None Technique: Duplex Doppler evaluation including color Doppler and spectral/pulsed waveform analysis of the lower extremity arteries was performed. Finding: Inanation's Bilateral lower extremities. Risk Factors Obesity VELOCITY AND DOPPLER WAVEFORM ANALYSIS RIGHT cm/se Waveform Severity LEFT cm/se Waveform Severity c c dCFA 112.8 Multiphasic dCFA 108.2 Multiphasic Prof Fem 48.7 Multiphasic Prof Fem 76.6 Multiphasic Art Art. Fem Art 117.1 Multiphasic Fem Art 131.2 Multiphasic Prox. Prox. Fem Art 107.4 Multiphasic Fem Art 138.8 Mid Mid. Multiphasic Fem Art 116.3 Multiphasic Fem Art 103.8 Multiphasic Dist Dist. Pop Art(AK) 87.5 Multiphasic Pop Art(AK) 82.6 Multiphasic Pop Art(BK) 109.7 Multiphasic Pop Art(BK) 91.2 Multiphasic PRODUCT PROMOTER RETAIL PET Dist. 84.7 Multiphasic PRODUCT PROMOTER RETAIL PET Dist. 76.0 Multiphasic Per Art Dist. 96.0 Multiphasic Per Art Dist. DPA 93.0 Multiphasic DPA 87.0 CONCLUSION No sonographic evidence of stenosis or occlusion in bilateral lower extremities. Normal multiphasic flow noted throughout both legs. Waveforms are hyperemic possibly due to vaso dilation, due to infection. Ankle-brachial index not performed due to pain in bilateral legs.
--- NOTE | 2025-09-01 17:25 | PROGRESS NOTE ---
Daily Progress Note Providers to CC ~ Antibiotic Timeout Antibiotic Ordered?: Yes Subjective The patient has a significant be read bilateral lower extremities the patient is endorses not being compliant with her levothyroxine and often forgets to take her dose she is on 300 mcg daily however her TSH is 50.89 and free T4 is less than 0.20. The patient otherwise is stable Objective Vital Signs Date Time Temp Pulse Resp B/P (MAP) Pulse Ox O2 Delivery O2 Flow Rate FiO2 09/01/25 16:22 95 Nasal Cannula* 3 32 09/01/25 14:28 16 09/01/25 10:00 97.4 80 137/82 (100) Result Diagram: 09/01/25 0656 09/01/25 0656 Gen. No acute distress alert and oriented 4 Lungs clear to ascultation bilaterally, no wheezes rales or rhonchi appreciated Heart normal sinus rhythm no murmurs rubs or clicks noted Abdomen soft nontender bowel sounds are normoactive Lower extremities no clubbing cyanosis, significant generalized edema and be red erythema bilateral lower extremities Problem\Assessment\Plan Problems/Diagnosis: (1) Bilateral lower leg cellulitis # Holly lower extremity cellulitis On IV Rocephin and IV vancomycin Ultrasounds negative for DVT # partial ptosis of the right eye Resolved the patient does not report any weakness appreciated Head CT scan is negative No indication for Neurology at this juncture # chronic kidney disease Daily metabolic panels are ordered to evaluate for MONICA # chronic HFpEF # chronic hypoxic respiratory failure on 3 L oxygen at home Continue Lasix 40 mg b.i.d. Oxygen as needed # hypothyroidism # noncompliant with levothyroxine on 300 mcg daily at home TSH is 50.89 Free T4 is less than 0.20 # DVT prophylaxis SQ heparin Date of Service: Sep 01, 2025 Billing Provider: GRETCHEN FUENTES DO Common Visit Codes: NOT BILLABLE GRETCHEN FUENTES DO Sep 01, 2025 17:25
[2025-09-01] MEDS: VANCOmycin 1250MG/NS 250ml Bag 250 ML IV SCH (19:38)
[2025-09-01] MEDS: albuterol 2.5 MG/3 ML nebule NEB PRN (21:26)
[2025-09-01] MEDS: CefTRIAXone/D5W-Rocephin 1gm 50 ML IV SCH (22:05)
[2025-09-02] VITALS (8 sets, daily range): BP systolic 106–127; BP diastolic 64–71; PULSE 62–86; RESP 14–20; TEMP 97.4–97.9; O2SAT 90–100
[2025-09-02 05:11] LABS: MEAN PLATELET VOLUME 9.8 FL (7.4-10.4); RED CELL DISTRIBUTION WIDTH 17.2 % (11.5-14.5)
[2025-09-02 05:23] LABS: INR 1.0 INR
[2025-09-02 05:30] LABS: CREATININE 1.51 MG/DL (0.40-0.90); PHOSPHORUS 5.4 MG/DL (2.3-4.5); TOTAL CARBON DIOXIDE 33.4 MMOL/L (24-32); eCRCL 48 ML/MIN; eGFR 36 ML/MIN
[2025-09-02 05:36] LABS: APTT 28 SECONDS (22-32)
--- NOTE | 2025-09-02 10:07 | PROGRESS NOTE ---
Daily Progress Note Providers to CC ~ Antibiotic Timeout Antibiotic Ordered?: Yes Subjective The patient feels better and was asking if she could be discharged however was understanding accepting of remaining hospitalized for an additional evening. Her left lower extremity erythema is now faint and nearly resolved however the right the area has receded from the line of demarcation however the majority of the area outlined is still a dark red however is lightly improved Objective Vital Signs Date Time Temp Pulse Resp B/P (MAP) Pulse Ox O2 Delivery O2 Flow Rate FiO2 09/02/25 07:25 62 16 92 Nasal Cannula* 3 32 09/02/25 05:00 97.9 127/71 (89) Result Diagram: 09/02/2542609/02/25426 Gen. No acute distress alert and oriented 4 Lungs clear to ascultation bilaterally, no wheezes rales or rhonchi appreciated Heart normal sinus rhythm no murmurs rubs or clicks noted Abdomen soft nontender bowel sounds are normoactive Lower extremities no clubbing cyanosis, mild generalized edema right> left receding of the erythema from the line of demarcation on the right however a deep red appearance for the majority of the area outlined, faint erythema of the left and nearly resolved Coagulation Studies Laboratory Tests Test 09/02/25 04:27 Prothrombin Time 10.4 SECONDS (9.0-12.0) INR International Normalized Ratio 1.0 INR Activated Partial Thromboplast Time 28 SECONDS (22-32) Coagulation Comments Problem\Assessment\Plan Problems/Diagnosis: (1) Bilateral lower leg cellulitis # bilateral lower extremity cellulitis On IV Rocephin and IV vancomycin Ultrasounds negative for DVT Arterial ultrasound is negative for any significant stenosis 09/02 significantly improved and nearly resolved on the left # partial ptosis of the right eye Resolved the patient does not report any weakness appreciated Head CT scan is negative No indication for Neurology at this juncture # chronic kidney disease Daily metabolic panels are ordered to evaluate for MONICA # chronic HFpEF # chronic hypoxic respiratory failure on 3 L oxygen at home Continue Lasix 40 mg b.i.d. Oxygen as needed # hypothyroidism # noncompliant with levothyroxine on 300 mcg daily at home TSH is 50.89 Free T4 is less than 0.20 # DVT prophylaxis SQ heparin Disposition: Anticipate discharge in 1-2 days Date of Service: Sep 02, 2025 Billing Provider: GRETCHEN FUENTES DO Common Visit Codes: [id number] INP/OBS CARE(HIGH) GRETCHEN FUENTES DO Sep 02, 2025 10:07
[2025-09-03 05:56] VITALS: BP 152/93; PULSE 75; RESP 16; TEMP 97.8; O2SAT 95
[2025-09-03 06:11] LABS: HBSAG SCREEN Negative (Negative); HEP B CORE AB, IGM Negative (Negative); HEP B CORE AB, TOT Negative (Negative)
[2025-09-03] MEDS: VANCOMYCIN LEVEL IV ONE (07:19)
[2025-09-03 08:09] LABS: MEAN PLATELET VOLUME 9.5 FL (7.4-10.4); RED CELL DISTRIBUTION WIDTH 16.7 % (11.5-14.5)
[2025-09-03 08:26] LABS: APTT 31 SECONDS (22-32); INR 1.0 INR
[2025-09-03 08:28] LABS: CREATININE 1.54 MG/DL (0.40-0.90); PHOSPHORUS 4.5 MG/DL (2.3-4.5); TOTAL CARBON DIOXIDE 36.0 MMOL/L (24-32); eCRCL 47 ML/MIN; eGFR 36 ML/MIN
[2025-09-03] MEDS: potassium Cl 20 mEq SR tablet PO PRN (09:02)
[2025-09-03] MEDS ORDERED: LACT1CAP26 PO (09:53)
[2025-09-03] MEDS ORDERED: CEFD300C3 PO (09:53)
--- NOTE | 2025-09-03 10:04 | DISCHARGE SUMMARY ---
Discharge Summary Providers to CC ~ Discharge Summary Admission Diagnosis: CELLULITIS Hospital Course DATE OF ADMISSION: 09/01/2025 DATE OF DISCHARGE: 09/03/2025 Discharge Diagnosis\\Comment: Bilateral lower extremity cellulitis Partial ptosis of the right eye Chronic kidney disease Chronic HFpEF with chronic respiratory failure on 3 L oxygen at home Hypothyroidism with noncompliance in taking levothyroxine Mild hypokalemia Operations\\Procedures: None Consultants: None Complications: None Condition on DC: Stable New Medications: Cefdinir* (Cefdinir*) 300 Mg Capsule 1 CAP PO Q12H, #10 CAP Lactobacillus Rhamnosus (Culturelle) 10 Billion Cell Capsule 1 EACH PO BID, #28 CAP Continued Medications: Albuterol Sulfate (Proair Hfa) 1 Puff Inh 2 PUFFS IH BID PRN for SOB or wheezing Furosemide* (Lasix*) 20 Mg Tablet 2 TAB PO BID for 30 Days, #30 TAB Levothyroxine Sodium* (Synthroid*) 88 Mcg Tablet 300 MCG PO DAILY for 30 Days, #30 TAB Potassium Chloride (Klor-Con) 10 Meq Tab.prt.sr 1 TAB PO DAILY Prednisone (Prednisone) 10 Mg Tablet Discharge Summary: The patient is admitted by resident physician PAOLO Reno , under the supervision of LISETTE Burr MD with the following HPI:"This is a 50-year-old obese female with past medical history of CHF, sleep apnea, hyp othyroidism who presents to ER with with swelling and pain in her right lower extremity. Patient reports that two days ago swelling started gradually, right leg is erythematous, warm, tender pain is 10/10 in intensity, sharp, nonradiating patient can not even walk because of pain. Patient reports that she do not know how the swelling occured, denies any fall, any injury. She also reports she was feeling feverish Patient also reports in the past she had left leg cellulitis 4 years ago. Her left leg also swollen erythematous however it is not painful. In addition to that patient also reports chest pain which was sharp radiating to the left side of the neck and lasted only for few seconds, currently she denies chest pain. During that episode of chest pain she had no nausea, no vomiting and no sweating. Patient also reports that yesterday when she woke up in the morning she can not completely open her right eye. Apart from that she also had history of heart failure for which she uses 3 L of oxygen at home which is her baseline." The patient is on IV Rocephin and IV vancomycin and the erythema improved significantly in the morning after admission and was at least 75% resolved by the day of discharge the patient wanted to go home and was cleared medically to be discharged her white blood cell count was initially 9300 on the white blood cell count was 7100. The patient was discharged with cefdinir 300 mg b.i.d. for five days and Culturelle probiotic. Venous ultrasound was negative for DVT and arterial ultrasound was negative for any arterial stenosis or occlusions The admitting physician assessed that the patient has a left partial I ptosis however did not appreciate this and there was no appreciated difference between the her eyes bilaterally head CT scan has been obtained on admission which was unremarkable. The patient has a hypothyroidism in his on a high dose of levothyroxine 300 mcg daily her TSH is 58.89 in her free T4 was less than 0.20 on speaking with the patient the patient admitted that she forgets to take her levothyroxine some days I am stressed the importance of taking levothyroxine and some of the complications in regards to myxedema. The patient is has a mildly worsening renal function from a creatinine of 1.36 on admission and was 1.54 on discharge I did recommend the patient obtain a metabolic panel in one-week to monitor her kidney function as well with a serum potassium level as on the day discharge his serum potassium was 3.3 the patient takes 10 mEq of potassium at home and is on Lasix 40 mg b.i.d. for chronic HFpEF and uses 3 L oxygen at baseline at home for due to her heart failure and remained on 3 L during hospitalization in his respiratory status was at baseline no acute respiratory decompensation or dyspnea was appreciated. Gen. No acute distress alert and oriented 4 Lungs clear to ascultation bilaterally, no wheezes rales or rhonchi appreciated Heart normal sinus rhythm no murmurs rubs or clicks noted Abdomen soft nontender bowel sounds are normoactive Lower extremities no clubbing cyanosis, mild generalized edema bilaterally with mild erythema lower extremities bilaterally The patient felt ready to be discharged and was medically cleared to be discharged on 09/03/2025 The patient was seen and evaluated on day of discharge. Time spent on discharge 35 minutes *Problems/Diagnosis: (1) Bilateral lower leg cellulitis Total Time Spent on D/C: > 30 Minutes Date of Service: Sep 03, 2025 Billing Provider: GRETCHEN FUENTES DO Common Visit Codes: 19153-FFA/OBS DISCH DAY >30min GRETCHEN FUENTES DO Sep 03, 2025 10:04
[2025-09-03 10:20] VITALS: PULSE 83; RESP 19; O2SAT 98
[2025-09-03] MEDS ORDERED: vancomycin/NS 1 GM ADD-VANTAGE 250 ML IV SCH (20:00)
[2025-09-05] MEDS ORDERED: VANCOMYCIN LEVEL IV ONE (07:30)
== END 2025-09-03 11:30 | disposition home or self-care (01) | DRG 383 ==
LOC: ER 20:42 → ED HOLD 09-01 00:55 → SUR 3N 09-01 03:06
PROVIDERS: ADMIT Internal Medicine; ATTEND Family Medicine
DX: L03.116 Cellulitis of left lower limb (principal); I50.42 Chronic combined systolic (congestive) and diastolic (congestive) heart failure; I13.0 Hypertensive heart and chronic kidney disease with heart failure and stage 1 through stage 4 chronic kidney disease, or unspecified chronic kidney disease; J96.11 Chronic respiratory failure with hypoxia; L03.115 Cellulitis of right lower limb; E03.9 Hypothyroidism, unspecified; F32.A Depression, unspecified; E66.01 Morbid (severe) obesity due to excess calories; N18.32 Chronic kidney disease, stage 3b; I25.10 Atherosclerotic heart disease of native coronary artery without angina pectoris; F41.9 Anxiety disorder, unspecified; F15.90 Other stimulant use, unspecified, uncomplicated; G47.33 Obstructive sleep apnea (adult) (pediatric); H02.401 Unspecified ptosis of right eyelid; T38.1X6A Underdosing of thyroid hormones and substitutes, initial encounter; E87.6 Hypokalemia; Z79.899 Other long term (current) drug therapy; Z82.49 Family history of ischemic heart disease and other diseases of the circulatory system; Z86.73 Personal history of transient ischemic attack (TIA), and cerebral infarction without residual deficits; Z82.3 Family history of stroke; Z98.891 History of uterine scar from previous surgery; Z83.3 Family history of diabetes mellitus; Z68.41 Body mass index [BMI] 40.0-44.9, adult; Z88.0 Allergy status to penicillin; Z88.5 Allergy status to narcotic agent; Y92.89 Other specified places as the place of occurrence of the external cause
CPT/HCPCS: 36415; 70450; 80053; 80202; 80305; 82570; 83605; 83735; 83880; 84100; 84132; 84145; 84300; 84439; 84443; 84484; 84540; 85025; 85610; 85651; 85730; 86704; 86705; 87040; 87081; 87340; 93005; 93925; 93971; 94640; 94760; 99285; A4615; A6258; G0378; J0696; J1171; J1644; J1938; J3373; J3374; J3490; J7040; Q0163